=== PATIENT | female | born 1940 | race Caucasian/White ===

== ENCOUNTER 2017-09-29 18:52 | Observation (INO) | payer MEDICARE ==
[~2017-09-29] VITALS: Ht 162.6 cm; Wt 50.0 kg
[~2017-09-29 18:52] MED LIST: ALLE60TA PO; BENZ1TAB PO; CETI10 PO; CLON1 PO; DILA2TAB4 PO; LAMO100T PO; MACR100C PO; NAPHSOL EACH EYE; POTA-243 PO; PREV30CA36 PO; REME15TA PO; SYNT25TA PO; TRIA3AER; ZIPR40 PO; [UNRECOGNIZED DRUG - CODE] PO
[2017-09-29 19:19] VITALS: BP 171/76; PULSE 65; RESP 17; TEMP 97.5; O2SAT 99
--- NOTE | 2017-09-29 19:36 | PD ---
HPI Chief Complaint: Dizziness Time Seen by Provider: 19:30 Travel History International Travel<30 days: No Contact w/Intl Traveler<30days: No Traveled to known affect area: No History of Present Illness HPI 77-year-old female with history of hypertension and bipolar disorder presents emergency department for evaluation. Patient states she has been being treated for a right otitis media for about the last month. She has an appointment with clinical research monitor tomorrow however last night and today she has felt very lightheaded. She states that she feels as though she is going to pass out with any position changes. She has been nauseous. Denies any vomiting. No chest pain or tightness. No difficulty breathing. No other focal deficits or weakness. Patient denies any fever or chills. She has no other symptoms to report. PFSH Past Medical History Bipolar Disorder: Yes Anxiety: Yes Cancer: No Cardiovascular Problems: Yes Diabetes: No Diminished Hearing: No Endocrine: Yes Gastrointestinal Disorders: Yes (ACID REFLEX AND ULCERS) GERD: Yes Genitourinary: No Hepatitis: No Hiatal Hernia: No Hypertension: Yes (IN PAST, OFF MEDICATION) Insomnia: Yes Musculoskeletal: Yes Neurologic: No Psychiatric: Yes (ANXIETY AND DEPRESSION, BIPOLAR) Reproductive: No Respiratory: Yes (ENVIRONMENTAL ALLEGIES) Thyroid Disease: Yes (HYPOTHYROIDISM) PNEUMOCCOCAL Vaccine (Year): 1 Menopausal: Yes : 2 Para: 2 Miscarriage: 0 : 0 Ovarian Cysts: Yes (RIGHT TUBE AND OVARY REMOVED) Past Surgical History Abdominal Surgery: No Arteriovenous Shunt: No Body Medical Devices: DENTAL TOP LEFT, BOTTOM RIGHT Cardiac Surgery: No Ear Surgery: No Endocrine Surgery: Yes (PARTIAL THYROIDECTOMY) Eye Surgery: No Genitourinary Surgery: No Gynecologic Surgery: Yes ( right ovary and right tube removed) Insulin Pump: No Joint Replacement: Yes (LEFT TKR) Oral Surgery: Yes (tongue biopsy ) Thoracic Surgery: No Other Surgery: Yes (PARTIAL THYROIDECTOMY) Social History Alcohol Use: Yes (SOCIAL MIX DRINKS) Tobacco Use: No Substance Use: No Allergies-Medications (Allergen,Severity, Reaction): Coded Allergies: azithromycin (Unverified Allergy, Severe, very sick, 01/25/17) diatrizoate meglumine (Unverified Allergy, Mild, HIVES, 01/25/17) gadobenic acid (Unverified Allergy, Mild, HIVES, 01/25/17) gadodiamide (Unverified Allergy, Mild, HIVES, 01/25/17) gadoteridol (Unverified Allergy, Mild, HIVES, 01/25/17) iodine (Unverified Allergy, Mild, HIVES AND NAUSEA, 01/25/17) iodixanol (Unverified Allergy, Mild, HIVES, 01/25/17) iohexol (Unverified Allergy, Mild, HIVES, 01/25/17) penicillin G (Unverified Allergy, Mild, HIVES, 01/25/17) potassium iodide (Unverified Allergy, Mild, HIVES AND NAUSEA, 01/25/17) povidone-iodine (Unverified Allergy, Mild, HIVES AND NAUSEA, 01/25/17) sodium iodide (Unverified Allergy, Mild, HIVES AND NAUSEA, 01/25/17) sodium iodide (Unverified Allergy, Mild, HIVES AND NAUSEA, 01/25/17) aspirin (Unverified Adverse Reaction, Severe, PT HAS ULCER, 01/25/17) erythromycin base (Unverified Adverse Reaction, Severe, TOO TIRED TO GET OUT OF BED, 01/25/17) Uncoded Allergies: PREDNISONE/CORTISONE (Allergy, Severe, 05/28/11) Reported Meds & Prescriptions Reported Meds & Active Scripts Active Macrobid (Nitrofurantoin Macrocrystals) 100 Mg Cap 100 Mg PO BID Reported Cefprozil 250 Mg/5 Ml Delaney 250 Mg PO Q12 Dilaudid (Hydromorphone HCl) 2 Mg Tab 2 Mg PO Q6H Zyrtec 10 Mg Tab (Cetirizine HCl) 10 Mg Tab 10 Mg PO DAILY PRN Naphcon-A (Naphazoline W/ Pheniramine) Op Jing 1 Drop EACH EYE BID Jagruti Allergy (Fexofenadine Hcl) 60 Mg Tab 60 Mg PO DAILY Remeron 15 mg (Mirtazapine) 15 Mg Tab 1 Tab PO HS Cogentin (Benztropine Mesylate) 1 Mg Tab 1 Mg PO DAILY Lamotrigine 100 Mg Tab 1 Tab PO HS Geodon (Ziprasidone) 40 Mg Cap 40 Mg PO HS Prevacid (Lansoprazole) 30 Mg Capcr 30 Mg PO BID Nasacort Aq (Triamcinolone Acetonide) 55 Mcg Naspr 2 Spr NA DAILY SPRAY IN EACH NOSTRIL Klonopin (Clonazepam) 1 Mg Tab 1 Mg PO BID Synthroid 25 mcg (Levothyroxine Sodium) 25 Mcg Tab 25 Mcg PO DAILY K-Dur (Potassium Chloride) 10 Meq Tabcr 10 Meq PO DAILY Review of Systems Except as stated in HPI: all other systems reviewed are Neg Physical Exam Narrative GENERAL: Well-nourished female patient, in no acute distress. SKIN: Focused skin assessment warm/dry. HEAD: Atraumatic. Normocephalic. EYES: Pupils equal and round. No scleral icterus. No injection or drainage. ENT: No nasal bleeding or discharge. Mucous membranes pink and moist. NECK: Trachea midline. No JVD. CARDIOVASCULAR: Regular rate and rhythm. RESPIRATORY: No accessory muscle use. Clear to auscultation. Breath sounds equal bilaterally. GASTROINTESTINAL: Abdomen soft, non-tender, nondistended. Hepatic and splenic margins not palpable. MUSCULOSKELETAL: No obvious deformities. No clubbing. No cyanosis. No edema. NEUROLOGICAL: Awake and alert. No obvious cranial nerve deficits. Motor grossly within normal limits. Normal speech. PSYCHIATRIC: Appropriate mood and affect; insight and judgment normal. Data Data Last Documented VS Vital Signs Date Time Temp Pulse Resp B/P (MAP) Pulse Ox O2 Delivery O2 Flow Rate FiO2 09/29/17 20:46 58 16 175/78 (110) 98 Room Air 09/29/17 19:19 97.5 Orders Orders Electrocardiogram (09/29/17 19:32) Basic Metabolic Panel (Bmp) (09/29/17 19:32) Complete Blood Count With Diff (09/29/17 19:32) Magnesium (Mg) (09/29/17 19:32) Ckmb (Isoenzyme) Profile (09/29/17 19:32) Troponin I (09/29/17 19:32) Act Partial Throm Time (Ptt) (09/29/17:32) Prothrombin Time / Inr (Pt) (09/29/17 19:32) Urinalysis - C+S If Indicated (09/29/17 19:32) Chest, Single Ap (09/29/17 19:32) Ct Brain W/O Iv Contrast(Rout) (09/29/17 19:32) Ecg Monitoring (09/29/17 19:32) Iv Access Insert/Monitor (09/29/17 19:32) Oximetry (09/29/17 19:32) Sodium Chloride 0.9% Flush (Ns Flush) (09/29/17 19:45) CKMB (09/29/17 19:40) CKMB% (09/29/17 19:40) Urine Culture (09/29/17 20:10) Admit Order (Ed Use Only) (09/29/17 20:49) Labs Laboratory Tests Test 09/29/17 19:40 09/29/17 20:10 White Blood Count 8.9 TH/MM3 Red Blood Count 4.84 MIL/MM3 Hemoglobin 14.0 GM/DL Hematocrit 41.1 % Mean Corpuscular Volume 84.9 FL Mean Corpuscular Hemoglobin 29.0 PG Mean Corpuscular Hemoglobin Concent 34.2 % Red Cell Distribution Width 13.4 % Platelet Count 322 TH/MM3 Mean Platelet Volume 7.0 FL Neutrophils (%) (Auto) 77.7 % Lymphocytes (%) (Auto) 14.8 % Monocytes (%) (Auto) 6.7 % Eosinophils (%) (Auto) 0.5 % Basophils (%) (Auto) 0.3 % Neutrophils # (Auto) 6.9 TH/MM3 Lymphocytes # (Auto) 1.3 TH/MM3 Monocytes # (Auto) 0.6 TH/MM3 Eosinophils # (Auto) 0.0 TH/MM3 Basophils # (Auto) 0.0 TH/MM3 CBC Comment DIFF FINAL Differential Comment Prothrombin Time 10.1 SEC Prothromb Time International Ratio 1.0 RATIO Activated Partial Thromboplast Time 26.8 SEC Blood Urea Nitrogen 14 MG/DL Creatinine 0.79 MG/DL Random Glucose 100 MG/DL Calcium Level 8.7 MG/DL Magnesium Level 2.1 MG/DL Sodium Level 128 MEQ/L Potassium Level 4.4 MEQ/L Chloride Level 95 MEQ/L Carbon Dioxide Level 25.9 MEQ/L Anion Gap 7 MEQ/L Estimat Glomerular Filtration Rate 71 ML/MIN Total Creatine Kinase 121 U/L Creatine Kinase MB 4.0 NG/ML Troponin I LESS THAN 0.02 NG/ML Urine Color LIGHT-YELLOW Urine Turbidity CLEAR Urine pH 6.0 Urine Specific [place] 1.006 Urine Protein NEG mg/dL Urine Glucose (UA) NEG mg/dL Urine Ketones NEG mg/dL Urine Occult Blood NEG Urine Nitrite NEG Urine Bilirubin NEG Urine Urobilinogen LESS THAN 2.0 MG/DL Urine Leukocyte Esterase MOD Urine WBC 12 /hpf Urine Squamous Epithelial Cells 1 /hpf Microscopic Urinalysis Comment CULTURE INDICATED MDM Medical Decision Making Medical Screen Exam Complete: Yes Emergency Medical Condition: Yes Medical Record Reviewed: Yes Differential Diagnosis Otitis media versus vertigo versus intracranial etiology versus electrolyte abnormality versus cardiac arrhythmia Narrative Course 77-year-old female presents emergency department for evaluation. Patient appears without distress. Vital signs are stable. Workup is initiated in triage ambulance hallway. Laboratory Tests Test 09/29/17 19:40 09/29/17 20:10 White Blood Count 8.9 TH/MM3 Red Blood Count 4.84 MIL/MM3 Hemoglobin 14.0 GM/DL Hematocrit 41.1 % Mean Corpuscular Volume 84.9 FL Mean Corpuscular Hemoglobin 29.0 PG Mean Corpuscular Hemoglobin Concent 34.2 % Red Cell Distribution Width 13.4 % Platelet Count 322 TH/MM3 Mean Platelet Volume 7.0 FL Neutrophils (%) (Auto) 77.7 % Lymphocytes (%) (Auto) 14.8 % Monocytes (%) (Auto) 6.7 % Eosinophils (%) (Auto) 0.5 % Basophils (%) (Auto) 0.3 % Neutrophils # (Auto) 6.9 TH/MM3 Lymphocytes # (Auto) 1.3 TH/MM3 Monocytes # (Auto) 0.6 TH/MM3 Eosinophils # (Auto) 0.0 TH/MM3 Basophils # (Auto) 0.0 TH/MM3 CBC Comment DIFF FINAL Differential Comment Prothrombin Time 10.1 SEC Prothromb Time International Ratio 1.0 RATIO Activated Partial Thromboplast Time 26.8 SEC Blood Urea Nitrogen 14 MG/DL Creatinine 0.79 MG/DL Random Glucose 100 MG/DL Calcium Level 8.7 MG/DL Magnesium Level 2.1 MG/DL Sodium Level 128 MEQ/L Potassium Level 4.4 MEQ/L Chloride Level 95 MEQ/L Carbon Dioxide Level 25.9 MEQ/L Anion Gap 7 MEQ/L Estimat Glomerular Filtration Rate 71 ML/MIN Total Creatine Kinase 121 U/L Creatine Kinase MB 4.0 NG/ML Troponin I LESS THAN 0.02 NG/ML Urine Color LIGHT-YELLOW Urine Turbidity CLEAR Urine pH 6.0 Urine Specific [place] 1.006 Urine Protein NEG mg/dL Urine Glucose (UA) NEG mg/dL Urine Ketones NEG mg/dL Urine Occult Blood NEG Urine Nitrite NEG Urine Bilirubin NEG Urine Urobilinogen LESS THAN 2.0 MG/DL Urine Leukocyte Esterase MOD Urine WBC 12 /hpf Urine Squamous Epithelial Cells 1 /hpf Microscopic Urinalysis Comment CULTURE INDICATED I discussed the pt with my attending who suggests observation admission for further evaluation of pts near syncopal events. Diagnosis Primary Impression: Near syncope Admitting Information Admitting Physician Requests: Observation Condition: Stable Candy Mendez Sep 29, 2017 19:36
[2017-09-29] MEDS ORDERED: SODIUM CHLORIDE 0.9% FLUSH 10 ML FLUSH IVF PRN (19:45)
--- NOTE | 2017-09-29 20:06 | RADRPT ---
EXAM DATE/TIME: 09/29/2017 19:45 [facility] COMPARISON: CHEST SINGLE AP, October 23, 2015, 21:52. INDICATIONS : Dizziness. MEDICAL HISTORY : Hypertension. Myocardial infarction. Emphysema. SURGICAL HISTORY : None. ENCOUNTER: Initial ACUITY: 1 day PAIN SCORE: 0/10 LOCATION: Bilateral chest FINDINGS: A single view of the chest demonstrates the lungs to be symmetrically aerated without evidence of mas s, infiltrate or effusion. The cardiomediastinal contours are unremarkable. Osseous structures are intact. CONCLUSION: Stable chest appearance. No acute disease. Simeon Smith MD on September 29, 2017 at 20:03 Board Certified Radiologist. This report was verified electronically.
[2017-09-29 20:10] LABS: AUTOMATED NEUTROPHIL # 6.9 TH/MM3 (1.8-7.7); BASOPHIL % 0.3 % (0.0-2.0); EOSINOPHIL % 0.5 % (0.0-4.0); HEMATOCRIT 41.1 % (35.0-46.0); LYMPH % 14.8 % (9.0-44.0); LYMPHOCYTE # 1.3 TH/MM3 (1.0-4.8); MEAN CELL VOLUME 84.9 FL (80.0-100.0); MEAN CORPUSCULAR HGB CONC 34.2 % (32.0-36.0); MONO % 6.7 % (0.0-8.0); MONOCYTE # 0.6 TH/MM3 (0-0.9); NEUT % 77.7 % (16.0-70.0); PLATELET COUNT 322 TH/MM3 (150-450); RED BLOOD COUNT 4.84 MIL/MM3 (4.00-5.30); RED CELL DISTRIBUTION WIDTH 13.4 % (11.6-17.2); WHITE BLOOD COUNT 8.9 TH/MM3 (4.0-11.0)
[2017-09-29 20:27] LABS: BICARBONATE 25.9 MEQ/L (21.0-32.0); BLOOD UREA NITROGEN 14 MG/DL (7-18); CALCIUM 8.7 MG/DL (8.5-10.1); CHLORIDE 95 MEQ/L (98-107); CREATININE 0.79 MG/DL (0.50-1.00); GLOMERULAR FILTRATION RATE 71 ML/MIN (>89); GLUCOSE,RANDOM 100 MG/DL (74-106); MAGNESIUM 2.1 MG/DL (1.5-2.5); SODIUM (NA) 128 MEQ/L (136-145)
[2017-09-29 20:31] LABS: TROPONIN I LESS THAN 0.02 NG/ML (0.02-0.05)
[2017-09-29 20:35] LABS: PROTHROMBIN TIME - PATIENT 10.1 SEC (9.8-11.6)
[2017-09-29 20:40] LABS: BILIRUBIN, URINE NEG (NEG); BLOOD, URINE NEG (NEG); GLUCOSE,URINE NEG (NEG); KETONE, URINE NEG (NEG); NITRITE,URINE NEG (NEG); SQUAMOUS EPITHELIAL CELL URINE 1 /hpf (0-5); URINE COLOR LIGHT-YELLOW (YELLW/STRAW); URINE LEUKOCYTE ESTERASE MOD (NEG)
--- NOTE | 2017-09-29 20:45 | RADRPT ---
EXAM DATE/TIME: 09/29/2017 19:49 [facility] COMPARISON: CT BRAIN W/O CONTRAST, May 23, 2011, 21:15. INDICATIONS : Dizziness. RADIATION DOSE: 34.35 CTDIvol (mGy) MEDICAL HISTORY : Hypertension. SURGICAL HISTORY : None. ENCOUNTER: Initial ACUITY: 1 day PAIN SCALE: 0/10 LOCATION: cranial TECHNIQUE: Multiple contiguous axial images were obtained of the head. Using automated exposure control and adj ustment of the mA and/or kV according to patient size, radiation dose was kept as low as reasonably a chievable to obtain optimal diagnostic quality images. DICOM format image data is available electro nically for review and comparison. FINDINGS: CEREBRUM: The ventricles are normal for age. No evidence of midline shift, mass lesion, hemorrhage or acute in farction. No extra-axial fluid collections are seen. POSTERIOR FOSSA: The cerebellum and brainstem are intact. The 4th ventricle is midline. The cerebellopontine angle i s unremarkable. EXTRACRANIAL: The visualized portion of the orbits is intact. SKULL: The calvaria is intact. No evidence of skull fracture. CONCLUSION: Stable brain appearance. No acute intracranial findings. Simeon Smith MD on September 29, 2017 at 20:40 Board Certified Radiologist. This report was verified electronically.
[2017-09-29 20:46] VITALS: BP 175/78; PULSE 58; RESP 16; O2SAT 98
[2017-09-29] MEDS ORDERED: MULT-65 PO (20:56)
[2017-09-29] MEDS ORDERED: PREV30CA36 PO (20:56)
[2017-09-29] MEDS ORDERED: NAPHSOL EACH EYE (20:56)
[2017-09-29] MEDS ORDERED: CETI10 (20:56)
[2017-09-29] MEDS ORDERED: ZINC220C3 PO (20:56)
[2017-09-29] MEDS ORDERED: LAMO100T PO (20:56)
[2017-09-29] MEDS ORDERED: POTA10CA PO (20:56)
[2017-09-29] MEDS ORDERED: ZIPR40 PO (20:56)
[2017-09-29] MEDS ORDERED: SYNT25TA PO (20:56)
[2017-09-29] MEDS ORDERED: CYAN1TAB24 (20:56)
[2017-09-29] MEDS ORDERED: MELA1TAB18 PO (20:56)
[2017-09-29] MEDS ORDERED: TRIA1SPR5 EACH NARE (20:56)
[2017-09-29] MEDS ORDERED: CLON1 PO (20:56)
[2017-09-29] MEDS ORDERED: VITA1000 PO (20:56)
[2017-09-29] MEDS ORDERED: LISI10TA3 PO (20:56)
[2017-09-29] MEDS ORDERED: SODIUM CHLOR 0.9% 1000 ML INJ 1,000 ML IV SCH (21:30)
[2017-09-29 22:21] VITALS: BP 220/91; PULSE 59; RESP 16; O2SAT 97
--- NOTE | 2017-09-29 22:28 | PD ---
Physical Exam Narrative GENERAL: 77-year-old female in no apparent distress SKIN: Focused skin assessment warm/dry. HEAD: Atraumatic. Normocephalic. EYES: Pupils equal and round. No scleral icterus. No injection or drainage. ENT: No nasal bleeding or discharge. Mucous membranes pink and moist. NECK: Trachea midline. CARDIOVASCULAR: Regular rate and rhythm. RESPIRATORY: No accessory muscle use. No increased effort GASTROINTESTINAL: Abdomen soft, non-tender, nondistended. MUSCULOSKELETAL: No obvious deformities. No clubbing. No cyanosis. NEUROLOGICAL: Awake and alert. Moves all extremities. Normal speech. Data Data Last Documented VS Vital Signs Date Time Temp Pulse Resp B/P (MAP) Pulse Ox O2 Delivery O2 Flow Rate FiO2 09/29/17 20:46 58 16 175/78 (110) 98 Room Air 09/29/17 19:19 97.5 Orders Orders Electrocardiogram (09/29/17 19:32) Basic Metabolic Panel (Bmp) (09/29/17 19:32) Complete Blood Count With Diff (09/29/17 19:32) Magnesium (Mg) (09/29/17 19:32) Ckmb (Isoenzyme) Profile (09/29/17 19:32) Troponin I (09/29/17:32) Act Partial Throm Time (Ptt) (09/29/17:32) Prothrombin Time / Inr (Pt) (09/29/17 19:32) Urinalysis - C+S If Indicated (09/29/17 19:32) Chest, Single Ap (09/29/17 19:32) Ct Brain W/O Iv Contrast(Rout) (09/29/17 19:32) Ecg Monitoring (09/29/17 19:32) Iv Access Insert/Monitor (09/29/17 19:32) Oximetry (09/29/17 19:32) Sodium Chloride 0.9% Flush (Ns Flush) (09/29/17 19:45) CKMB (09/29/17 19:40) CKMB% (09/29/17 19:40) Urine Culture (09/29/17 20:10) Admit Order (Ed Use Only) (09/29/17 20:49) Orthostatic Vital Signs (09/29/17 20:51) Labs Laboratory Tests Test 09/29/17 19:40 09/29/17 20:10 White Blood Count 8.9 TH/MM3 Red Blood Count 4.84 MIL/MM3 Hemoglobin 14.0 GM/DL Hematocrit 41.1 % Mean Corpuscular Volume 84.9 FL Mean Corpuscular Hemoglobin 29.0 PG Mean Corpuscular Hemoglobin Concent 34.2 % Red Cell Distribution Width 13.4 % Platelet Count 322 TH/MM3 Mean Platelet Volume 7.0 FL Neutrophils (%) (Auto) 77.7 % Lymphocytes (%) (Auto) 14.8 % Monocytes (%) (Auto) 6.7 % Eosinophils (%) (Auto) 0.5 % Basophils (%) (Auto) 0.3 % Neutrophils # (Auto) 6.9 TH/MM3 Lymphocytes # (Auto) 1.3 TH/MM3 Monocytes # (Auto) 0.6 TH/MM3 Eosinophils # (Auto) 0.0 TH/MM3 Basophils # (Auto) 0.0 TH/MM3 CBC Comment DIFF FINAL Differential Comment Prothrombin Time 10.1 SEC Prothromb Time International Ratio 1.0 RATIO Activated Partial Thromboplast Time 26.8 SEC Blood Urea Nitrogen 14 MG/DL Creatinine 0.79 MG/DL Random Glucose 100 MG/DL Calcium Level 8.7 MG/DL Magnesium Level 2.1 MG/DL Sodium Level 128 MEQ/L Potassium Level 4.4 MEQ/L Chloride Level 95 MEQ/L Carbon Dioxide Level 25.9 MEQ/L Anion Gap 7 MEQ/L Estimat Glomerular Filtration Rate 71 ML/MIN Total Creatine Kinase 121 U/L Creatine Kinase MB 4.0 NG/ML Troponin I LESS THAN 0.02 NG/ML Urine Color LIGHT-YELLOW Urine Turbidity CLEAR Urine pH 6.0 Urine Specific [place] 1.006 Urine Protein NEG mg/dL Urine Glucose (UA) NEG mg/dL Urine Ketones NEG mg/dL Urine Occult Blood NEG Urine Nitrite NEG Urine Bilirubin NEG Urine Urobilinogen LESS THAN 2.0 MG/DL Urine Leukocyte Esterase MOD Urine WBC 12 /hpf Urine Squamous Epithelial Cells 1 /hpf Microscopic Urinalysis Comment CULTURE INDICATED MDM Supervised Visit with PADMINI: Yes Interpretation(s) CBC & BMP Diagram 09/29/17 19:40 Calcium Level 8.7, Magnesium Level 2.1 Last [address] 09/29/17 193 Signed Impressions: Service Date/Time: September 19:49 - CONCLUSION: Stable brain appearance. No acute intracranial findings. Simeon Smith MD Chest X-Ray 09/29/[id number] Signed Impressions: Service Date/Time: September 19:45 - CONCLUSION: Stable chest appearance. No acute disease. Simeon Smith MD Narrative Course I, Dr. adames, have reviewed the advance practice practitioner's documentation and am in agreement, met with the patient face to face, made the diagnosis, and the medical decision making was done by me. *My assessment and Findings: 77-year-old female with dizziness and near syncopal event tonight. Patient has mild elevation in CK-MB. Symptoms sound more related to her recent ear infection given age and risk factors she agrees to observation overnight. She also has concurrent hyponatremia but this is similar to prior. Patient and daughter updated Physician Communication Physician Communication Dr. Finley agrees to admission Diagnosis Primary Impression: Near syncope Admitting Information Admitting Physician Requests: Observation Condition: Stable Toyin Adames MD Sep 29, 2017 22:28
[2017-09-29 22:50] VITALS: BP 167/74; PULSE 59; RESP 12; O2SAT 98
[2017-09-29 22:56] VITALS: BP_SYST 162; BP_SYST 164; BP_SYST 175; BP_DIAS 74; BP_DIAS 90; RESP 14; RESP 16
[2017-09-29] MEDS ORDERED: lamoTRIgine 100 MG TAB PO SCH (23:00)
[2017-09-29] MEDS ORDERED: clonazePAM 1 MG TAB PO SCH (23:00)
[2017-09-29] MEDS ORDERED: ZIPRASIDONE HCL 40 MG CAP PO SCH (23:00)
[2017-09-29 23:05] VITALS: BP 186/86; PULSE 57; RESP 16; TEMP 98.9; O2SAT 98
[2017-09-30] VITALS (9 sets, daily range): BP systolic 117–170; BP diastolic 58–83; PULSE 55–84; RESP 16–20; TEMP 96.9–98.5; O2SAT 96–98
[2017-09-30] MEDS ORDERED: cloNIDine HCL 0.1 MG TAB PO PRN (07:45)
[2017-09-30] MEDS ORDERED: ENALAPRILAT 1.25 MG/ML VIAL IV PUSH PRN (07:45)
[2017-09-30] MEDS ORDERED: LEVOTHYROXINE SODIUM 25 MCG TAB PO SCH (08:00)
--- NOTE | 2017-09-30 08:05 | HHI.HP ---
HPI Service [facility] Hospitalists Primary Care Physician Imelda Espinosa MD Admission Diagnosis Near syncope; hyponatremia Chief Complaint: Lightheadedness Travel History International Travel<30 Days: No Contact w/Intl Traveler <30 Da: No Traveled to Known Affected Are: No History of Present Illness Ms. Winter is a pleasant 77 y/o WF with HTN, hypothyroidism, GERD, and Bipolar disorder. Pt was recently treated for otitis external in July 2017 with Cipro gtt. She was later seen at [facility] on 09/17/17 with c/o lightheadedness , abdominal pain and urinary frequency and found to have right cerumen impaction which was lavaged and pt noted to have otitis externa. She was prescribed Ofloxacin 0.3% gtt. Her UA was abnormal at that time and she was prescribed Cipro 500mg po BID. She followed up with her PCP, Dr. Espinosa, on 09/26/17 and was still having some dizziness which did not improve with the treatment with the Ofloxacin gtt. She was being sent for Holter monitor, CT brain and head, Carotid US and 2D echo and was scheduled to see ENT today. She was also prescribed oral Cipro 250mg po BID. She presented to the ED at [facility] on with complaints of lightheadedness and near syncope. She states that she feels as though she is going to pass out with any position changes. Denies any dizziness or room spinning. She describes the lightheadedness as a feeling like she is going to pass out. She has been nauseous but denies any vomiting. She reports that this has been going on intermittently for the last few weeks. She states that in the last few days it was worse and she was unable to get around much in her apartment. She lives alone. Orthostatic vitals signs were checked in the ED and were negative but her BP was significantly elevated last night with systolic as high as 220. Her BP has been better overnight and this morning. Head CT was negative. She states that since admission she has been feeling better. She has gotten up out of bed to use the bedside commode and denies any lightheadedness. She is anxious to go home today. Denies any chest pain, palpitations, SOB, abdominal pain, headache or visual changes. She reports that she had been having a headache previously but this has been better since admission as well. She states that she has been eating and drinking normally. She takes Miralax regularly for constipation and states that two days ago she had many BMs so she did not take the Miralax yesterday. Her only recent medication change was a decrease in her dose of Klonopin to 0.5mg in AM and 1mg in PM. She had previously been on 1mg BID. She does feel that she has been more anxious since the decrease in her Klonopin dose. She notes that she feels the lightheadedness started around the time of her medication change. Review of Systems Constitutional: DENIES: Fever, Weight gain, Weight loss Eyes: DENIES: Vision loss Ears, nose, mouth, throat: DENIES: Tinnitus, Hearing loss, Oral lesions, Ear Pain, Sinus Pain Respiratory: DENIES: Shortness of breath Cardiovascular: DENIES: Chest pain, Palpitations, Lower Extremity Edema Gastrointestinal: COMPLAINS OF: Constipation, Nausea, DENIES: Abdominal pain Genitourinary: DENIES: Hematuria, Dysuria Musculoskeletal: DENIES: Back pain, Neck pain Integumentary: DENIES: Rash Neurologic: COMPLAINS OF: Headache, DENIES: Localized weakness, Speech Problems , Poor Balance Psychiatric: DENIES: Confusion Past Family Social History Past Medical History Bipolar disorder GERD/Hx of PUD Richardson's esophagus Allergic rhinitis Anxiety HTN Hyperlipidemia Hypothyroidism Iron deficiency anemia Osteoarthritis Osteoporosis Vertigo Vitamin D deficiency Past Surgical History Right Salpingo-oophorectomy Partial thyroidectomy Tonsillectomy Reported Medications Zinc Sulfate 25 Mg PO DAILY Vitamin D-1000 2,000 Units PO DAILY B12 1,000 Mcg Tab 2,500 Multi-Vitamin Daily 1 Tab PO DAILY Melatonin 10 Mg PO HS PRN Lisinopril 10 Mg PO DAILY Geodon 40 Mg PO HS Nasacort Allergy 24Hr Nasal [place] 110 Mcg EACH NARE DAILY Synthroid 25 Mcg PO DAILY Potassium Chloride ER 10 Meq PO DAILY Naphcon-A Opth Drops 0.025-0.3 % Soln 1 Drop EACH EYE BID Prevacid 30 Mg PO BID Lamotrigine 100 Mg PO HS Klonopin 0.5mg in AM and 1mg in PM Cetirizine 10 Mg DAILY Allergies: Coded Allergies: azithromycin (Unverified Allergy, Severe, very sick, 01/25/17) diatrizoate meglumine (Unverified Allergy, Mild, HIVES, 01/25/17) gadobenic acid (Unverified Allergy, Mild, HIVES, 01/25/17) gadodiamide (Unverified Allergy, Mild, HIVES, 01/25/17) gadoteridol (Unverified Allergy, Mild, HIVES, 01/25/17) iodine (Unverified Allergy, Mild, HIVES AND NAUSEA, 01/25/17) iodixanol (Unverified Allergy, Mild, HIVES, 01/25/17) iohexol (Unverified Allergy, Mild, HIVES, 01/25/17) penicillin G (Unverified Allergy, Mild, HIVES, 01/25/17) potassium iodide (Unverified Allergy, Mild, HIVES AND NAUSEA, 01/25/17) povidone-iodine (Unverified Allergy, Mild, HIVES AND NAUSEA, 01/25/17) sodium iodide (Unverified Allergy, Mild, HIVES AND NAUSEA, 01/25/17) sodium iodide (Unverified Allergy, Mild, HIVES AND NAUSEA, 01/25/17) aspirin (Unverified Adverse Reaction, Severe, PT HAS ULCER, 01/25/17) erythromycin base (Unverified Adverse Reaction, Severe, TOO TIRED TO GET OUT OF BED, 01/25/17) Uncoded Allergies: PREDNISONE/CORTISONE (Allergy, Severe, 05/28/11) Family History Mother with hx of Bipolar disorder, CAD Father with hx of Bipolar disorder Social History Hx of tobacco use, smoked from age 13 to 26, 2ppd, Hx of alcohol use Pt was born in [facility]. Moved to [place] in 1965 Physical Exam Vital Signs Vital Signs Date Time Temp Pulse Resp B/P (MAP) Pulse Ox O2 Delivery O2 Flow Rate FiO2 09/30/17 04:39 97.6 56 16 142/66 (91) 98 09/30/17 02:50 60 09/30/17 00:56 98.5 55 16 144/68 (93) 97 Manual Cuff/Auscultation 09/30/17 00:12 170/82 (111) 09/29/17 23:05 98.9 57 16 186/86 (119) 98 09/29/17 22:56 59 14 162/74 (103) 63 14 164/90 (114) 65 16 175/90 (118) 09/29/17 22:50 59 12 167/74 (105) 98 Room Air 09/29/17 22:21 59 16 220/91 (134) 97 Room Air 09/29/17 20:46 58 16 175/78 (110) 98 Room Air 09/29/17 19:19 97.5 65 17 171/76 (107) 99 Physical Exam GENERAL: This is a well-nourished, well-developed patient, in no apparent distress. HEENT: Atraumatic. Normocephalic. No temporal or scalp tenderness. No scleral icterus. Nose without bleeding, purulent drainage or septal hematoma. Right EAC with erythema and some cerumen. Airway patent. NECK: Trachea midline, supple, nontender. CARDIO: Regular RESP: CTA bilaterally. No wheezes, rales, or rhonchi. ABD: +BS, soft, non-tender, nondistended. EXT: Extremities without clubbing, cyanosis, or edema. NEURO: Awake and alert. Motor and sensory grossly within normal limits. Normal speech. Laboratory Laboratory Tests Test 09/29/17 19:40 09/29/17 20:10 White Blood Count 8.9 Red Blood Count 4.84 Hemoglobin 14.0 Hematocrit 41.1 Mean Corpuscular Volume 84.9 Mean Corpuscular Hemoglobin 29.0 Mean Corpuscular Hemoglobin Concent 34.2 Red Cell Distribution Width 13.4 Platelet Count 322 Mean Platelet Volume 7.0 Neutrophils (%) (Auto) 77.7 Lymphocytes (%) (Auto) 14.8 Monocytes (%) (Auto) 6.7 Eosinophils (%) (Auto) 0.5 Basophils (%) (Auto) 0.3 Neutrophils # (Auto) 6.9 Lymphocytes # (Auto) 1.3 Monocytes # (Auto) 0.6 Eosinophils # (Auto) 0.0 Basophils # (Auto) 0.0 CBC Comment DIFF FINAL Differential Comment Prothrombin Time 10.1 Prothromb Time International Ratio 1.0 Activated Partial Thromboplast Time 26.8 Blood Urea Nitrogen 14 Creatinine 0.79 Random Glucose 100 Calcium Level 8.7 Magnesium Level 2.1 Sodium Level 128 Potassium Level 4.4 Chloride Level 95 Carbon Dioxide Level 25.9 Anion Gap 7 Estimat Glomerular Filtration Rate 71 Total Creatine Kinase 121 Creatine Kinase MB 4.0 Troponin I LESS THAN 0.02 Urine Color LIGHT-YELLOW Urine Turbidity CLEAR Urine pH 6.0 Urine Specific [place] 1.006 Urine Protein NEG Urine Glucose (UA) NEG Urine Ketones NEG Urine Occult Blood NEG Urine Nitrite NEG Urine Bilirubin NEG Urine Urobilinogen LESS THAN 2.0 Urine Leukocyte Esterase MOD Urine WBC 12 Urine Squamous Epithelial Cells 1 Microscopic Urinalysis Comment CULTURE INDICATED Date/Time Source Procedure Growth Status 09/29/17 20:10 Urine Clean Catch Urine Culture Pending Received Result Diagram: 09/29/17193909/29/171939 Imaging Last [address] 09/29/171931 Signed Impressions: Service Date/Time: September 19:49 - CONCLUSION: Stable brain appearance. No acute intracranial findings. Simeon Smith MD Chest X-Ray 09/29/171931 Signed Impressions: Service Date/Time: September 19:45 - CONCLUSION: Stable chest appearance. No acute disease. MD Isai Deani VTE Risk Assessment Caprini VTE Risk Assessment: Mod/High Risk (score >= 2) Caprini Risk Assessment Model Point Value = 1 Point Value = 2 Point Value = 3 Point Value = 5 Age 41-60 Minor surgery BMI > 25 kg/m2 Swollen legs Varicose veins or History of unexplained or recurrent spontaneous Oral contraceptives or hormone replacement Sepsis (< 1 month) Serious lung disease, including pneumonia (< 1 month) Abnormal pulmonary function Acute myocardial infarction Congestive heart failure (< 1 month) History of inflammatory bowel disease Medical patient at bed rest Age 61-74 Arthroscopic surgery Major open surgery (> 45 min) Laparoscopic surgery (> 45 min) Malignancy Confined to bed (> 72 hours) Immobilizing plaster cast Central venous access Age >= 75 History of VTE Family history of VTE Factor V Leiden Prothrombin [id number] Lupus anticoagulant Anticardiolipin antibodies Elevated serum homocysteine Heparin-induced thrombocytopenia Other congenital or acquired thrombophilia Stroke (< 1 month) Elective arthroplasty Hip, pelvis, or leg fracture Acute spinal cord injury (< 1 month) Prophylaxis Regimen Total Risk Factor Score Risk Level Prophylaxis Regimen 0-1 Low Early ambulation 2 Moderate Order ONE of the following: *Sequential Compression Device (SCD) *Heparin 5000 units SQ BID 3-4 Higher Order ONE of the following medications: *Heparin 5000 units SQ TID *Enoxaparin/Lovenox 40 mg SQ daily (WT < 150 kg, CrCl > 30 mL/min) *Enoxaparin/Lovenox 30 mg SQ daily (WT < 150 kg, CrCl > 10-29 mL/min) *Enoxaparin/Lovenox 30 mg SQ BID (WT < 150 kg, CrCl > 30 mL/min) AND/OR *Sequential Compression Device (SCD) 5 or more Highest Order ONE of the following medications: *Heparin 5000 units SQ TID (Preferred with Epidurals) *Enoxaparin/Lovenox 40 mg SQ daily (WT < 150 kg, CrCl > 30 mL/min) *Enoxaparin/Lovenox 30 mg SQ daily (WT < 150 kg, CrCl > 10-29 mL/min) *Enoxaparin/Lovenox 30 mg SQ BID (WT < 150 kg, CrCl > 30 mL/min) AND *Sequential Compression Device (SCD) Assessment and Plan Problem List: (1) Near syncope ICD Codes: R55 - Syncope and collapse Status: Acute Plan: Lightheadedness Near Syncope - Pt is a 77 y/o WF with HTN, hypothyroidism, GERD, and Bipolar disorder. - Pt had recently been treated for otitis externa with antibiotic drops and oral antibiotics in the last few weeks. - She presented to the ED at [facility] on 09/29/17 with complaints of lightheadedness and near syncope. She reports that this has been going on intermittently for the last few weeks. She states that in the last few days it was worse and she was unable to get around much in her apartment. - Orthostatic vitals signs were checked in the ED and were negative but her BP was significantly elevated last night with systolic as high as 220. Her BP has been better overnight and this morning. - Head CT was negative. - She states that since admission she has been feeling better. She has gotten up out of bed to use the bedside commode and denies any lightheadedness. She is anxious to go home today. - Holter Monitor - Carotid US - Telemetry - 2D echo - PT evaluation - Pt is refusing to stay another night. We will try to get as much workup done here today as we can but she will need close followup with her PCP to review results if we are unable to get results before she leaves later today. Otitis Externa, acute - Pt was recently treated for otitis externa in July 2017 with Cipro gtt. - She was later seen at [facility] on 09/17/17 with c/o lightheadedness, abdominal pain and urinary frequency and found to have right cerumen impaction which was lavaged and pt noted to have otitis externa. She was prescribed Ofloxacin 0.3% gtt. Her UA was abnormal at that time and she was prescribed Cipro 500mg po BID. She followed up with her PCP, Dr. Espinosa, on 09/26/17 and was still having some lightheadedness which did not improve with the treatment with the Ofloxacin gtt. -She was scheduled to see Dr. Simons today. She was also prescribed oral Cipro 250mg po BID which she only took for a few days because she felt it was making her weak. - Pt still with noted erythema of the EAC of the right ear on exam but denies any pain. - She is to reschedule her appt with Dr. Simons HTN, chronic - Pts PT was significantly elevated overnight but she reports that with the lightheadedness and increased anxiety her BP elevates - Her BP improved overnight without medication intervention - She normally takes Lisinopril 10mg po daily which we will continue as long as her BP does not go too low. Hypothyroidism, chronic - Cont. home meds Bipolar Disorder,chronic - Cont. home meds - Pt requests that she have her previous dose of Klonopin (1mg BID) as she does not feel that the 0.5mg in the morning has been enough for her GERD, chronic - PPI Constipation, chronic - Miralax PRN ADDENDUM: - Pt was evaluated by PT and recommended HHC/PT but pt is refusing HHC/PT - She did have some lightheadedness in the afternoon when getting up. Her BP was stable with systolic in the 150's - Pts carotid US noted some moderate plaquing without hemodynamically significant stenosis - She has not had any significant arrhythmias noted on telemetry - Holter monitor to be applied prior to discharge. - Pt to be given another 500mL of NS and will try to ambulate to see if she has any further lightheadedness since pt is insisting on discharge today. - She will need close followup with her PCP, Dr. Espinosa in [address] Simons. (2) Hypertension, benign ICD Codes: I10 - Essential (primary) hypertension (3) Hypothyroidism ICD Codes: E03.9 - Hypothyroidism, unspecified (4) GERD (gastroesophageal reflux disease) ICD Codes: K21.9 - Gastro-esophageal reflux disease without esophagitis (5) Bipolar 1 disorder ICD Codes: F31.9 - Bipolar disorder, unspecified Assessment and Plan Patient examined. Assessment and plan formulated with Sabiha Zepeda PA-C. I agree with the above. dizziness. improved but not totally gone. did well with PT mild dehydration/hyponatremia. cont ivf recent abx for otitis externa and pt says was to see ENT today for "fluid" in her ear. Pt eager to go home. will give another 500ml fluid and recheck. Sabiha Zepeda Sep 30, 2017 08:05 Rohan Dotson MD Sep 30, 2017 13:51
[2017-09-30] MEDS ORDERED: clonazePAM 0.5 MG TAB PO SCH (09:00)
[2017-09-30] MEDS ORDERED: PANTOPRAZOLE SOD 40 MG DELAYED RELEASE TAB PO SCH (09:00)
[2017-09-30] MEDS ORDERED: FLUTICASONE PROPIONATE 50 MCG/ACT 16 GM NASAL SPRAY EACH NARE SCH (09:00)
[2017-09-30] MEDS ORDERED: PATIENT OWN MEDICATION EACH EYE SCH (09:00)
[2017-09-30] MEDS ORDERED: CETIRIZINE HCL 10 MG TAB PO SCH (09:00)
[2017-09-30] MEDS ORDERED: PNEUMOCOCCAL POLYVALENT INJ 25 MCG/0.5 ML SYR IM ONE (09:00)
[2017-09-30] MEDS ORDERED: TRIAMCINOLONE ACETONIDE 55 MCG/ACT NASAL SPRAY 16.5 GM BTL EACH NARE SCH (09:00)
[2017-09-30] MEDS ORDERED: LISINOPRIL 10 MG TAB PO SCH (09:00)
[2017-09-30 09:10] LABS: ALBUMIN 3.7 GM/DL (3.4-5.0); ALT (GPT) 19 U/L (10-53); AST (GOT) 17 U/L (15-37); BICARBONATE 27.1 MEQ/L (21.0-32.0); BLOOD UREA NITROGEN 10 MG/DL (7-18); CALCIUM 8.8 MG/DL (8.5-10.1); CHLORIDE 96 MEQ/L (98-107); GLOMERULAR FILTRATION RATE 70 ML/MIN (>89); GLUCOSE,RANDOM 88 MG/DL (74-106); SODIUM (NA) 129 MEQ/L (136-145)
[2017-09-30 09:14] LABS: ALKALINE PHOSPHATASE 55 U/L (45-117); TOTAL BILIRUBIN ADULT 0.3 MG/DL (0.2-1.0); TOTAL PROTEIN 6.9 GM/DL (6.4-8.2); TROPONIN I LESS THAN 0.02 NG/ML (0.02-0.05)
[2017-09-30] MEDS ORDERED: clonazePAM 1 MG TAB PO SCH (09:15)
--- NOTE | 2017-09-30 10:01 | RADRPT ---
EXAM DATE/TIME: 09/30/2017 09:13 [place] COMPARISON: No previous studies available for comparison. INDICATIONS : Lightheadedness. MEDICAL HISTORY : Hypothyroidism. Gastroesophageal reflux disease. Hypertension. Melanoma. SURGICAL HISTORY : Tongue biopsy. Right oophorectomy and fallopian tube removed. Partial thyroidectomy. Melanoma removed . ENCOUNTER: Initial ACUITY: 1 day PAIN SCORE: 0/10 LOCATION: Bilateral neck PEAK SYSTOLIC VELOCITIES (cm/sec): ICA/CCA RATIO: Right: 1.8 Left: 1.7 ICA: Right: 113 Left: 90 CCA: Right: 61 Left: 52 ECA: Right: 52 Left: 41 VERTEBRAL: Right: 58 antegrade Left: 38 antegrade Elevated flow velocities and ICA/CCA ratios have been found to correlate with increased degrees of vessel stenosis, calculated as percentage of diameter relative to a normal segment of distal ICA/CCA FINDINGS: RIGHT CAROTID: There is no evidence for a hemodynamically significant carotid stenosis. Moderate intimal hyperplasi a is present with scattered calcific plaque. LEFT CAROTID: There is no evidence for a hemodynamically significant carotid stenosis. Moderate intimal hyperplasi a is present with scattered calcific plaque. VERTEBRAL ARTERIES: Flow is antegrade in both vertebral arteries. MISCELLANEOUS: There are no ancillary masses or adenopathy. CONCLUSION: Moderate calcific plaque without hemodynamically significant stenosis. Continued surveillance is sug gested. There is strong concern of embolic disease CT angiography of the carotids would be of benefi t. . Edin Cadet MD FACR on September 30, 2017 at 9:57 Board Certified Radiologist. This report was verified electronically.
[2017-09-30] MEDS ORDERED: SODIUM CHLORID 0.9% 500 ML INJ 500 ML IV SCH (12:45)
[2017-09-30] MEDS ORDERED: ACETAMINOPHEN 325 MG TAB PO PRN (15:45)
--- NOTE | 2017-09-30 15:49 | HHI.DCPOC ---
Discharge Care Plan Diagnosis: (1) Hypothyroidism (2) GERD (gastroesophageal reflux disease) (3) Hypertension, benign (4) Bipolar 1 disorder (5) Near syncope (6) Otitis externa Goals to Promote Your Health * To prevent worsening of your condition and complications * To maintain your health at the optimal level Directions to Meet Your Goals Take your medications as prescribed Follow your dietary instruction Follow activity as directed Keep your appointments as scheduled Take your immunizations and boosters as scheduled If your symptoms worsen call your PCP, if no PCP go to Urgent Care Center or Emergency Room Smoking is Dangerous to Your Health. Avoid second hand smoke Call the 24-hour hour crisis hotline for domestic abuse at Sabiha Zepeda Sep 30, 2017 15:49
--- NOTE | 2017-09-30 18:03 | ECHRPT ---
Indication: NEAR SYNCOPE CONCLUSIONS Normal left ventricular size. Mild concentric left ventricular hypertrophy. The left ventricular systolic function is hyperdynamic with an estimated ejection fraction in the ra nge of 65- 70%. The left atrial size is mildly dilated. [id number] mitral valve regurgitation. Aortic valve sclerosis is present. There is mild tricuspid valve regurgitation. The estimated pulmonary arterial pressure is 26 mmHg. BP: / HR: Rhythm: Sinus MEASUREMENTS (Male / Female) Normal Values Technical Quality:Very technically difficult study 2D ECHO LV Diastolic Diameter PLAX 4.6 cm 4.2 - 5.9 / 3.9 - 5.3 cm LV Systolic Diameter PLAX 3.1 cm IVS Diastolic Thickness 1.1 cm 0.6 - 1.0 / 0.6 - 0.9 cm LVPW Diastolic Thickness 1.1 cm 0.6 - 1.0 / 0.6 - 0.9 cm LV Relative Wall Thickness 0.5 RV Internal Dim ED PLAX 1.8 cm LVOT Diameter 1.8 cm Aortic Root Diameter 2.1 cm LA Systolic Diameter LX 3.4 cm 3.0 - 4.0 / 2.7 - 3.8 cm M-MODE AV Cusp Separation MM 1.3 cm DOPPLER AV Peak Velocity 185.0 cm/s AV Peak Gradient 13.7 mmHg AV Mean Gradient 7.0 mmHg AV Velocity Time Integral 36.6 cm LVOT Peak Velocity 102.0 cm/s LVOT Peak Gradient 4.2 mmHg LVOT Velocity Time Integral 22.6 cm AV Area Cont Eq vti 1.6 cm AV Area Cont Eq pk 1.4 cm Mitral E Point Velocity 69.6 cm/s Mitral A Point Velocity 111.0 cm/s Mitral E to A Ratio 0.6 LV E' Lateral Velocity 11.0 cm/s Mitral E to LV E' Lateral Ratio 6.3 LV E' Septal Velocity 6.1 cm/s Mitral E to LV E' Septal Ratio 11.3 TR Peak Velocity 200.0 cm/s TR Peak Gradient 16.0 mmHg Right Atrial Pressure 10.0 mmHg Pulmonary Artery Systolic Pressu 26.0 mmHg Right Ventricular Systolic Press 26.0 mmHg PV Peak Velocity 57.1 cm/s PV Peak Gradient 1.3 mmHg FINDINGS LEFT VENTRICLE Normal left ventricular size. Mild concentric left ventricular hypertrophy. The left ventricular systolic function is hyperdynamic with an estimated ejection fraction in the ra nge of 65- 70%. RIGHT VENTRICLE Normal right ventricular size and systolic function. LEFT ATRIUM The left atrial size is mildly dilated. RIGHT ATRIUM The right atrial size is normal. ATRIAL SEPTUM The interatrial septum not well visualized. AORTA The aortic root and proximal ascending aorta are not well visualized. MITRAL VALVE [id number] mitral valve regurgitation. AORTIC VALVE Aortic valve sclerosis is present. TRICUSPID VALVE There is mild tricuspid valve regurgitation. The estimated pulmonary arterial pressure is 26 mmHg. PULMONARY VALVE The pulmonary valve is not well visualized. VESSELS The inferior vena cava was not well visualized. PERICARDIUM No pericardial effusion. Elfego Choi MD (Electronically Signed) Final Date:30 September 2017 18:01
--- NOTE | 2017-10-01 09:08 | EKG ---
Date Performed: 09/29/2017 Time Performed: 21:16:57 PTAGE: 77 years EKG: SINUS BRADYCARDIA WITH FIRST DEGREE AV BLOCK MINIMAL VOLTAGE CRITERIA FOR LVH, CONSIDER NOR MAL VARIANT ABNORMAL ECG PREVIOUS TRACING : 10/14/2015 09.41 DOCTOR: aHrris iHll Interpretating Date/Time 10/01/2017 09:06:19
--- NOTE | 2017-10-04 00:26 | HM ---
Date Performed: 09/30/2017 Time Performed: 13:51:00 HOOKUP DATE: 09/30/17 01:51:00 PM Fri ANALYSIS START TIME: 09/30/2017 1:56:00 PM ANALYSIS END TIME: 10/01/2017 1:59:59 PM PATIENT AGE: 77 PATIENT HEIGHT PATIENT WEIGHT DRUG LIST PATIENT DIAGNOSIS: near syncope TEST NARRATIVE: The patient's average heart rate was 62 BPM. Heart rates greater than 120 B PM were noted < 1% of the time. Heart rates less than 50 BPM were noted 24% of the time. No paus es exceeding 2.0 seconds were noted. 401 ventricular ectopics, which represented < 1% of the tota l beat count, were noted. The highest ventricular ectopic frequency occurred from 12:00 PM to 01:00 PM Sat. During this time 190 VE(s) occurred. Ventricular ectopics were observed as 399 isolated ulises t(s) and as 1 couplet(s). No runs were noted. Some of the ventricular beats occurred in bigeminal c ycles. 2 supraventricular ectopics, which represented < 1% of the total beat count, were noted. The highest supraventricular ectopic frequency occurred from 03:00 PM to 04:00 PM Fri. During this t tracy 2 SVE(s) occurred. No episodes of ST depression (defined as -1.0 mm or more) were noted in ch alberto 1. No episodes of ST depression (defined as -1.0 mm or more) were noted in channel 2. No epis odes of ST depression (defined as -1.0 mm or more) were noted in channel 3. POOR QUALITY TRACING, NO DIARY TEST INTERPRETATION: 1) Underlying Sinus rhythm 2) Areas of baseline artifact, unable to determine rhythm 3) Rare PVC/PAC 4) No diary of symptoms re turned Signed by : Homer holley
== END 2017-09-30 18:56 | disposition home or self-care (01) ==
LOC: NEPE 18:52 → NEDA 20:51 → NEPGCP 23:03
PROVIDERS: ADMIT Hospitalist; ATTEND Hospitalist
DX: R55 Syncope and collapse (principal); R11.0 Nausea; R51 Headache; H60.90 Unspecified otitis externa, unspecified ear; I10 Essential (primary) hypertension; I44.0 Atrioventricular block, first degree; R00.1 Bradycardia, unspecified; R94.31 Abnormal electrocardiogram [ECG] [EKG]; K21.9 Gastro-esophageal reflux disease without esophagitis; E03.9 Hypothyroidism, unspecified; F31.9 Bipolar disorder, unspecified; E86.0 Dehydration; E87.1 Hypo-osmolality and hyponatremia; K59.00 Constipation, unspecified; F41.9 Anxiety disorder, unspecified; E78.5 Hyperlipidemia, unspecified; Z79.899 Other long term (current) drug therapy; Z87.891 Personal history of nicotine dependence
CPT/HCPCS: 70450; 71045; 80048; 80053; 81001; 82550; 82552; 83735; 84484; 85025; 85610; 85730; 86403; 87077; 87086; 87186; 93005; 93225; 93226; 93306; 93880; 96360; 96361; 97162; 99285; G0378; G8987; G8988; J7030; J7040

== ENCOUNTER 2017-10-09 13:10 | Emergency (ER) | payer MEDICARE ==
[~2017-10-09] VITALS: Ht 152.4 cm; Wt 49.8 kg
[~2017-10-09 13:10] MED LIST changes: -ALLE60TA PO; -BENZ1TAB PO; +CETI10; -CETI10 PO; +CYAN1TAB24; -DILA2TAB4 PO; +LISI10TA3 PO; -MACR100C PO; +MELA1TAB18 PO; +MULT-65 PO; -POTA-243 PO; +POTA10CA PO; -REME15TA PO; +TRIA1SPR5 EACH NARE; -TRIA3AER; +VITA1000 PO; +ZINC220C3 PO; -[UNRECOGNIZED DRUG - CODE] PO
[2017-10-09 13:17] VITALS: BP 156/70; PULSE 80; RESP 16; TEMP 98.8; O2SAT 97
[2017-10-09 13:24] VITALS: BP 156/70; PULSE 80; RESP 16; TEMP 98.8; O2SAT 97
[2017-10-09 13:34] LABS: BILIRUBIN, URINE NEG (NEG); BLOOD, URINE TRACE (NEG); GLUCOSE,URINE NEG (NEG); KETONE, URINE NEG (NEG); NITRITE,URINE NEG (NEG); PH, URINE 5.5 (5.0-8.5); URINE COLOR YELLOW (YELLW/STRAW); URINE LEUKOCYTE ESTERASE NEG (NEG)
[2017-10-09 13:40] LABS: RBC, URINE 0-3 /hpf (0-3); WBC, URINE 0-2 /hpf (0-5)
[2017-10-09 13:41] LABS: SQUAMOUS EPITHELIAL CELL URINE 0-5 /hpf (0-5)
[2017-10-09] MEDS ORDERED: SODIUM CHLOR 0.9% 1000 ML INJ 1,000 ML IV ONE (13:45)
[2017-10-09] MEDS ORDERED: MECLIZINE HCL 25 MG TAB PO ONE (13:45)
[2017-10-09] MEDS ORDERED: SODIUM CHLORIDE 0.9% FLUSH 10 ML FLUSH IVF PRN (13:45)
--- NOTE | 2017-10-09 13:53 | PD ---
HPI Chief Complaint: Dizziness Time Seen by Provider: 13:32 Travel History International Travel<30 days: No Contact w/Intl Traveler<30days: No Traveled to known affect area: No History of Present Illness HPI Patient is a 77 year old female with history of hypertension, GERD, and bipolar disorder, who returns to the ER for evaluation of dizzyness. Patient reports that for the past month, she has been feeling very dizzy. Reports that she feels as if the room is spinning. She lives at home by herself, she is concerned as she is afraid of falling with her unstable gait. She has had an extensive workup during her last admission to the hospital for this on 09/29/17 where she had a ct of head which was benign as well as a carotid us which did show moderate calcific plaque without hemodynamically significant stenosis. Patient was discharged to home with instructions to follow-up with ENT Dr. Perez to further workup her symptoms. Patient reports that she saw Dr. Perez with ENT on , reports that he referred her to the dizzy/hearing clinic. Patient is frustrated as she is getting dizzier everyday and would like to know why she is so dizzy. Denies fall/trauma to head/neck. Denies fever/chills. Denies chest pain/sob. PFSH Past Medical History Blood Disorders: No Bipolar Disorder: Yes Anxiety: Yes Depression: Yes (bipolar) Cancer: Yes (SKIN MELANOMA REMOVED) Cardiovascular Problems: Yes High Cholesterol: Yes Diabetes: No Diminished Hearing: No Endocrine: Yes Gastrointestinal Disorders: Yes (ACID REFLEX AND ULCERS) GERD: Yes Genitourinary: No Hepatitis: No Hiatal Hernia: No Hypertension: Yes (IN PAST, OFF MEDICATION) Insomnia: Yes Medical other: No Musculoskeletal: Yes Neurologic: No Psychiatric: Yes (ANXIETY AND DEPRESSION, BIPOLAR) Reproductive: No Respiratory: Yes (ALLERGIES TO POLLEN/DUST) Thyroid Disease: Yes (HYPOTHYROIDISM) Tetanus Vaccination: Unknown PNEUMOCCOCAL Vaccine (Year): 1 ?: Not Menopausal: Yes : 2 Para: 2 Miscarriage: 0 : 0 Ovarian Cysts: Yes (RIGHT TUBE AND OVARY REMOVED) Past Surgical History Abdominal Surgery: No Arteriovenous Shunt: No Body Medical Devices: DENTAL TOP LEFT, BOTTOM RIGHT, L KNEE REPLACEMENT Cardiac Surgery: No Ear Surgery: No Endocrine Surgery: Yes (PARTIAL THYROIDECTOMY) Eye Surgery: No Genitourinary Surgery: No Gynecologic Surgery: Yes ( right ovary and right tube removed) Insulin Pump: No Joint Replacement: Yes (LEFT TKR) Oral Surgery: Yes (tongue biopsy ) Thoracic Surgery: No Other Surgery: Yes (PARTIAL THYROIDECTOMY) Social History Alcohol Use: Yes (SOCIAL MIX DRINKS) Tobacco Use: No Substance Use: No Allergies-Medications (Allergen,Severity, Reaction): Coded Allergies: azithromycin (Unverified Allergy, Severe, very sick, 10/09/17) diatrizoate meglumine (Unverified Allergy, Mild, HIVES, 10/09/17) gadobenic acid (Unverified Allergy, Mild, HIVES, 10/09/17) gadodiamide (Unverified Allergy, Mild, HIVES, 10/09/17) gadoteridol (Unverified Allergy, Mild, HIVES, 10/09/17) iodine (Unverified Allergy, Mild, HIVES AND NAUSEA, 10/09/17) iodixanol (Unverified Allergy, Mild, HIVES, 10/09/17) iohexol (Unverified Allergy, Mild, HIVES, 10/09/17) penicillin G (Unverified Allergy, Mild, HIVES, 10/09/17) potassium iodide (Unverified Allergy, Mild, HIVES AND NAUSEA, 10/09/17) povidone-iodine (Unverified Allergy, Mild, HIVES AND NAUSEA, 10/09/17) sodium iodide (Unverified Allergy, Mild, HIVES AND NAUSEA, 10/09/17) sodium iodide (Unverified Allergy, Mild, HIVES AND NAUSEA, 10/09/17) aspirin (Unverified Adverse Reaction, Severe, PT HAS ULCER, 10/09/17) erythromycin base (Unverified Adverse Reaction, Severe, TOO TIRED TO GET OUT OF BED, 10/09/17) Uncoded Allergies: PREDNISONE/CORTISONE (Allergy, Severe, 05/28/11) Reported Meds & Prescriptions Reported Meds & Active Scripts Active Reported Zinc Sulfate 220 Mg (50 Mg Zinc) Cap 25 Mg PO DAILY Vitamin D-1000 (Cholecalciferol) 1,000 Unit Tab 2,000 Units PO DAILY B12 (Cyanocobalamin) 1,000 Mcg Tab 2,500 Multi-Vitamin Daily (Multiple Vitamin) 1 Tab Tab 1 Tab PO DAILY Melatonin 10 Mg-1 Mg Tab 10 Mg PO HS PRN Lisinopril 10 Mg Tab 10 Mg PO DAILY Geodon (Ziprasidone) 40 Mg Cap 40 Mg PO HS Nasacort Allergy 24Hr Nasal [place] (Triamcinolone Acetonide Nasal [place]) 55 Mcg Spr 110 Mcg EACH NARE DAILY Synthroid (Levothyroxine Sodium) 25 Mcg Tab 25 Mcg PO DAILY Potassium Chloride ER (Potassium Chloride) 10 Meq Cap 10 Meq PO DAILY Naphcon-A Opth Drops (Naphazoline-Pheniramine Opth Drops) 0.025-0.3 % Soln 1 Drop EACH EYE BID Prevacid (Lansoprazole) 30 Mg Capdr 30 Mg PO BID Lamotrigine 100 Mg Tab 100 Mg PO HS Klonopin (Clonazepam) 1 Mg Tab 1.5 Mg PO DAILY Cetirizine (Cetirizine HCl) 10 Mg Tab 10 Mg DAILY Review of Systems General / Constitutional: No: Fever Eyes: No: Visual changes HENT: Positive: Lightheadedness, No: Headaches Cardiovascular: No: Chest Pain or Discomfort Respiratory: No: Shortness of Breath Gastrointestinal: No: Abdominal Pain Genitourinary: No: Dysuria Musculoskeletal: No: Pain Skin: No Rash Neurologic: Positive: Dizziness, No: Weakness, Headache Psychiatric: No: Depression Endocrine: No: Polydipsia Hematologic/Lymphatic: No: Easy Bruising Physical Exam Narrative GENERAL: moderate distress SKIN: Focused skin assessment warm/dry. HEAD: Atraumatic. Normocephalic. EYES: Pupils equal and round. No scleral icterus. No injection or drainage. ENT: No nasal bleeding or discharge. Mucous membranes pink and moist. NECK: Trachea midline. No JVD. CARDIOVASCULAR: Regular rate and rhythm. No murmur appreciated. RESPIRATORY: No accessory muscle use. Clear to auscultation. Breath sounds equal bilaterally. GASTROINTESTINAL: Abdomen soft, non-tender, nondistended. Hepatic and splenic margins not palpable. MUSCULOSKELETAL: No obvious deformities. No clubbing. No cyanosis. No edema. NEUROLOGICAL: Awake and alert. No obvious cranial nerve deficits. Motor grossly within normal limits. Normal speech. PSYCHIATRIC: anxious mood and affect; insight and judgment normal. Data Data Last Documented VS Vital Signs Date Time Temp Pulse Resp B/P (MAP) Pulse Ox O2 Delivery O2 Flow Rate FiO2 10/09/17 15:23 69 16 175/69 (104) 100 Room Air 10/09/17 13:24 98.8 Orders Orders Urinalysis - C+S If Indicated (10/09/17 13:17) Electrocardiogram (10/09/17 13:43) Prothrombin Time / Inr (Pt) (10/09/17 13:43) Act Partial Throm Time (Ptt) (10/09/17 13:43) Complete Blood Count With Diff (10/09/17 13:43) Comprehensive Metabolic Panel (10/09/17 13:43) Creatine Kinase (Cpk) (10/09/17 13:43) Troponin I (10/09/17 13:43) Chest, Single Ap (10/09/17 13:43) Ecg Monitoring (10/09/17 13:43) Iv Access Insert/Monitor (10/09/17 13:43) Oximetry (10/09/17 13:43) Sodium Chloride 0.9% Flush (Ns Flush) (10/09/17 13:45) Mri Brain W/O Contrast (10/09/17 ) Sodium Chlor 0.9% 1000 Ml Inj (Ns 1000 M (10/09/17 13:45) Meclizine (Antivert) (10/09/17 13:45) Ondansetron Inj (Zofran Inj) (10/09/17 14:15) Famotidine (Pepcid) (10/09/17 14:30) Labs Laboratory Tests Test 10/09/17 13:20 10/09/17 13:35 Urine Collection Type CLEAN CATCH Urine Color YELLOW Urine Turbidity CLEAR Urine pH 5.5 Urine Specific [place] 1.010 Urine Protein NEG mg/dL Urine Glucose (UA) NEG mg/dL Urine Ketones NEG mg/dL Urine Occult Blood TRACE Urine Nitrite NEG Urine Bilirubin NEG Urine Urobilinogen 0.2 MG/DL Urine Leukocyte Esterase NEG Urine RBC 0-3 /hpf Urine WBC 0-2 /hpf Urine Squamous Epithelial Cells 0-5 /hpf Microscopic Urinalysis Comment CULT NOT INDICATED Urine Collection Time 13:20 White Blood Count 8.8 TH/MM3 Red Blood Count 5.08 MIL/MM3 Hemoglobin 14.8 GM/DL Hematocrit 43.0 % Mean Corpuscular Volume 84.7 FL Mean Corpuscular Hemoglobin 29.2 PG Mean Corpuscular Hemoglobin Concent 34.5 % Red Cell Distribution Width 12.5 % Platelet Count 398 TH/MM3 Mean Platelet Volume 7.4 FL Neutrophils (%) (Auto) 80.4 % Lymphocytes (%) (Auto) 12.2 % Monocytes (%) (Auto) 5.7 % Eosinophils (%) (Auto) 0.3 % Basophils (%) (Auto) 1.4 % Neutrophils # (Auto) 7.1 TH/MM3 Lymphocytes # (Auto) 1.1 TH/MM3 Monocytes # (Auto) 0.5 TH/MM3 Eosinophils # (Auto) 0.0 TH/MM3 Basophils # (Auto) 0.1 TH/MM3 CBC Comment DIFF FINAL Differential Comment Prothrombin Time 9.9 SEC Prothromb Time International Ratio 1.0 RATIO Activated Partial Thromboplast Time 25.7 SEC Blood Urea Nitrogen 14 MG/DL Creatinine 0.71 MG/DL Random Glucose 116 MG/DL Total Protein 7.8 GM/DL Albumin 4.2 GM/DL Calcium Level 9.3 MG/DL Alkaline Phosphatase 60 U/L Aspartate Amino Transf (AST/SGOT) 23 U/L Alanine Aminotransferase (ALT/SGPT) 18 U/L Total Bilirubin 0.6 MG/DL Sodium Level 125 MEQ/L Potassium Level 4.6 MEQ/L Chloride Level 91 MEQ/L Carbon Dioxide Level 24.2 MEQ/L Anion Gap 10 MEQ/L Estimat Glomerular Filtration Rate 80 ML/MIN Total Creatine Kinase 144 U/L Troponin I LESS THAN 0.02 NG/ML MDM Medical Decision Making Medical Screen Exam Complete: Yes Emergency Medical Condition: Yes Medical Record Reviewed: Yes Interpretation(s) EKG at 1402: NSR at 62bpm, qt/qtc: 388/394, no acute st or t wave changes. Vital Signs Date Time Temp Pulse Resp B/P (MAP) Pulse Ox O2 Delivery O2 Flow Rate FiO2 10/09/17 13:30 16 97 Room Air 10/09/17 13:24 98.8 80 16 156/70 (98) 97 10/09/17 13:17 98.8 80 16 156/70 (98) 97 Room Air Differential Diagnosis VBI, UTI, electrolyte abnormalities, ACS, vertigo Narrative Course 77-year-old female who returns to the emergency room for evaluation of dizziness which has been ongoing for the past month. During the course of the patients emergency department visit, the patients history, examination, and differential diagnosis were reviewed with the patient. The patient was placed on a monitoring engineer with oximetry and frequent blood pressure monitoring. The patient had an IV access obtained and blood work sent for analysis. The patient was initially provided IV fluids as well as Antivert. The patients laboratory studies were reviewed and remarkable for : CBC & BMP Diagram 10/09/17 13:35 Total Protein 7.8, Albumin 4.2, Calcium Level 9.3, Alkaline Phosphatase 60, Aspartate Amino Transf (AST/SGOT) 23, Alanine Aminotransferase (ALT/SGPT) 18, Total Bilirubin 0.6 Patient with a sodium of 125 with intractable dizziness, she will require admission for this at this time as she is not feeling any better Case reviewed with Dr. Feilpe, patients pcp: Chest xray: possible right upper lobe mass versus hypertrophic change - this was reviewed with Dr. Felipe as this will need to be followed up as outpatient - further studies will be ordered by Dr. Felipe as outpatient Patient also with baseline hyponatremia, will require fluid restriction - patient has known hyponatremia, sodium 129 is pt's baseline. Plan to have patient discharged with follow up with Dr. Felipe as she will need to follow up at the [facility] Last Impressions Chest X-Ray 10/09/17 1343 Signed Impressions: Service Date/Time: Monday, October 09, 2017 14:32 - CONCLUSION: 1. No definite acute abnormality seen. 2. Possible right upper lobe mass versus hypertrophic change at the first costochondral junction. This area could be further evaluated with a CT examination of the chest. Simeon Hunter MD MRI of brain with no acute abnormality Patient was recently admitted to the hospital for evaluation of dizziness and hyponatremia. Hyponatremia is at baseline for patient -discussed with patient need for fluid restriction as this is the main cause of her hyponatremia as per Dr. Olivares, her PCP. As per patient's primary care doctor, patient had a full workup for her dizziness last week, patient will need to follow-up at the vestibular rehab center and not admitted to the hospital. She is to call Dr. Olivares in the morning for early his appointment to help with a follow-up appointment. Patient does not meet inpatient criteria at this time. Dr. Olivares will follow up with patient closely as outpatient. All incidental findings were reviewed with patient and her daughter, they understand that lung mass will need further workup as outpatient by her primary care doctor Diagnosis Primary Impression: Hyponatremia Additional Impressions: Dizziness Vertigo Mass of lung Admitting Information Admitting Physician Requests: Observation Patient Instructions: General Instructions Additional Instructions: Please give patient a copy of her studies at discharge Please call your primary care doctor tomorrow morning for earliest follow-up. Please make an appointment for the vestibular rehab. Please follow up with your primary care doctor in 2-3 days Return to the ER if symptoms worsen or progress Return to the ER as needed Please monitor the amount of fluids you are drinking Please have your primary care doctor follow up on all incidental findings from today Disposition: 01 DISCHARGE HOME Condition: Stable Sabiha Santos DO Oct 09, 2017 13:53
[2017-10-09 13:57] LABS: AUTOMATED NEUTROPHIL # 7.1 TH/MM3 (1.8-7.7); BASOPHIL # 0.1 TH/MM3 (0-0.2); BASOPHIL % 1.4 % (0.0-2.0); EOSINOPHIL % 0.3 % (0.0-4.0); HEMOGLOBIN 14.8 GM/DL (11.6-15.3); LYMPH % 12.2 % (9.0-44.0); LYMPHOCYTE # 1.1 TH/MM3 (1.0-4.8); MEAN CELL VOLUME 84.7 FL (80.0-100.0); MEAN CORPUSCULAR HEMOGLOBIN 29.2 PG (27.0-34.0); MEAN CORPUSCULAR HGB CONC 34.5 % (32.0-36.0); MEAN PLATELET VOLUME 7.4 FL (7.0-11.0); MONO % 5.7 % (0.0-8.0); MONOCYTE # 0.5 TH/MM3 (0-0.9); NEUT % 80.4 % (16.0-70.0); PLATELET COUNT 398 TH/MM3 (150-450); RED BLOOD COUNT 5.08 MIL/MM3 (4.00-5.30); RED CELL DISTRIBUTION WIDTH 12.5 % (11.6-17.2); WHITE BLOOD COUNT 8.8 TH/MM3 (4.0-11.0)
[2017-10-09 14:00] VITALS: O2SAT 97
[2017-10-09 14:13] LABS: PROTHROMBIN TIME - PATIENT 9.9 SEC (9.8-11.6)
[2017-10-09] MEDS ORDERED: ONDANSETRON HCL 4 MG/2 ML VIAL IV PUSH ONE (14:15)
[2017-10-09] MEDS ORDERED: FAMOTIDINE 20 MG TAB PO ONE (14:30)
[2017-10-09 14:38] LABS: ALBUMIN 4.2 GM/DL (3.4-5.0); ALKALINE PHOSPHATASE 60 U/L (45-117); ALT (GPT) 18 U/L (10-53); AST (GOT) 23 U/L (15-37); BICARBONATE 24.2 MEQ/L (21.0-32.0); BLOOD UREA NITROGEN 14 MG/DL (7-18); CALCIUM 9.3 MG/DL (8.5-10.1); CHLORIDE 91 MEQ/L (98-107); CREATININE 0.71 MG/DL (0.50-1.00); GLOMERULAR FILTRATION RATE 80 ML/MIN (>89); GLUCOSE,RANDOM 116 MG/DL (74-106); TOTAL BILIRUBIN ADULT 0.6 MG/DL (0.2-1.0); TOTAL PROTEIN 7.8 GM/DL (6.4-8.2); TROPONIN I LESS THAN 0.02 NG/ML (0.02-0.05)
[2017-10-09 15:05] LABS: SODIUM (NA) 125 MEQ/L (136-145)
[2017-10-09 15:23] VITALS: BP 175/69; PULSE 69; RESP 16; O2SAT 100
--- NOTE | 2017-10-09 15:40 | RADRPT ---
EXAM DATE/TIME: 10/09/2017 14:32 [facility] COMPARISON: CHEST SINGLE AP, October 23, 2015, 21:52. CHEST SINGLE AP, September 29, 2017, 19:45. INDICATIONS : Nausea, weak, dizzy MEDICAL HISTORY : None. SURGICAL HISTORY : None. ENCOUNTER: Initial ACUITY: 1 month PAIN SCORE: 0/10 LOCATION: Bilateral chest FINDINGS: The heart size is normal. The lungs are free of focal consolidation. There is a focal air density in the right upper chest. Center of this related to a lung nodule versus hypertrophic change at the firs t costochondral junction. This should be further evaluated. No effusion is seen. There is a levocurva ture of the thoracic spine. CONCLUSION: 1. No definite acute abnormality seen. 2. Possible right upper lobe mass versus hypertrophic change at the first costochondral junction. Thi s area could be further evaluated with a CT examination of the chest. Simeon Hunter MD on October 09, 2017 at 15:36 Board Certified Radiologist. This report was verified electronically.
--- NOTE | 2017-10-09 16:05 | RADRPT ---
EXAM DATE/TIME: 10/09/2017 15:15 [facility] COMPARISON: CT BRAIN W/O CONTRAST, September 29, 2017, 19:49. MRI BRAIN W/O CONTRAST, July 10, 2012, 15:39. INDICATIONS : Dizziness. MEDICAL HISTORY : Hypertension. SURGICAL HISTORY : Thyroidectomy. Tonsillectomy. Total knee replacement, right. ENCOUNTER: Initial ACUITY: 1 day PAIN SCORE: 0/10 LOCATION: cranial TECHNIQUE: Multiplanar, multisequence MRI of the brain was performed without contrast. FINDINGS: CEREBRUM: The ventricles are normal for age. No evidence of midline shift, mass lesion, hemorrhage or acute in farction. No extraaxial fluid collections are seen. The pituitary gland and suprasellar cistern are normal in configuration. WHITE MATTER: [id number] periventricular and focal deep white matter T2 prolongation. POSTERIOR FOSSA: The cerebellum and brainstem are intact. The 4th ventricle is midline. The cerebellopontine angle is unremarkable. The cerebellar tonsils are normal in position. DIFFUSION IMAGING: No focal areas of restricted diffusion are seen. No evidence of acute infarction. EXTRACRANIAL: The visualized portions of the orbits and paranasal sinuses are unremarkable. CONCLUSION: 1. Senescent changes with mild to moderate periventricular small vessel ischemic white matter [place]. 2. No acute abnormality. Specifically, no evidence for acute infarction, hemorrhage or mass. Carlos Alberto Gordon MD on October 09, 2017 at 16:00 Board Certified Radiologist. This report was verified electronically.
[2017-10-09] MEDS ORDERED: clonazePAM 0.5 MG TAB PO ONE (16:45)
[2017-10-09] MEDS ORDERED: clonazePAM 1 MG TAB PO ONE (17:00)
--- NOTE | 2017-10-10 21:23 | EKG ---
Date Performed: 10/09/2017 Time Performed: 14:02:23 PTAGE: 77 years EKG: Sinus rhythm NORMAL ECG PREVIOUS TRACING : 09/29/2017 21.16 Since the previous tracing, no significant change noted DOCTOR: Jonathan Glass Interpretating Date/Time 10/10/2017 21:22:12
== END 2017-10-09 17:18 | disposition home or self-care (01) ==
LOC: PHED 13:10
DX: E87.1 Hypo-osmolality and hyponatremia (principal); R42 Dizziness and giddiness; R91.8 Other nonspecific abnormal finding of lung field; I10 Essential (primary) hypertension; K21.9 Gastro-esophageal reflux disease without esophagitis; F31.9 Bipolar disorder, unspecified; E03.9 Hypothyroidism, unspecified; E78.00 Pure hypercholesterolemia, unspecified; G47.00 Insomnia, unspecified
CPT/HCPCS: 70551; 71045; 80053; 81001; 82550; 84484; 85025; 85610; 85730; 93005; 96360; 99285; J7030

== ENCOUNTER 2017-11-04 15:39 | Observation (INO) | payer MEDICARE ==
[~2017-11-04] VITALS: Ht 152.4 cm; Wt 49.0 kg
[~2017-11-04 15:39] MED LIST changes: -CETI10; +CETI10 PO
[2017-11-04 15:49] VITALS: BP 179/84; PULSE 82; RESP 16; TEMP 96.5; O2SAT 95
[2017-11-04] MEDS ORDERED: SODIUM CHLOR 0.9% 1000 ML INJ 1,000 ML IV ONE (16:21)
[2017-11-04] MEDS ORDERED: ONDANSETRON ODT 4 MG TAB PO ONE (16:30)
[2017-11-04] MEDS ORDERED: ACETAMINOPHEN 325 MG TAB PO ONE (16:30)
--- NOTE | 2017-11-04 17:03 | PD ---
HPI Chief Complaint: General Weakness Time Seen by Provider: 16:09 Travel History International Travel<30 days: No Contact w/Intl Traveler<30days: No Traveled to known affect area: No History of Present Illness HPI 77-year-old female coming in from her home where she lives by herself , with complaints of generalized weakness, shaking, and headache. Patient has history of recent otitis externa followed by her ear nose and throat physician currently being treated with Ciprodex drops to the right ear. Patient denies fever or chills, but is very vague in her symptoms. She states she does have a headache which she describes as about a 7-8 out of 10. She is mildly nauseous but denies vomiting or diarrhea. She denies abdominal pain or changes in her urine. Patient is a poor historian. Patient has multiple allergies including prednisone, sulfa, aspirin, azithromycin, erythromycin, penicillin, CT dye. PFSH Past Medical History Blood Disorders: No Bipolar Disorder: Yes Anxiety: Yes Depression: Yes (bipolar) Cancer: Yes (SKIN MELANOMA REMOVED) Cardiovascular Problems: Yes High Cholesterol: Yes Diabetes: No Diminished Hearing: No Endocrine: Yes Gastrointestinal Disorders: Yes (ACID REFLEX AND ULCERS) GERD: Yes Genitourinary: No Hepatitis: No Hiatal Hernia: No Hypertension: Yes (IN PAST, OFF MEDICATION) Insomnia: Yes Musculoskeletal: Yes Neurologic: No Psychiatric: Yes (ANXIETY AND DEPRESSION, BIPOLAR) Reproductive: No Respiratory: Yes (ALLERGIES TO POLLEN/DUST) Thyroid Disease: Yes (HYPOTHYROIDISM) PNEUMOCCOCAL Vaccine (Year): 1 Menopausal: Yes : 2 Para: 2 Miscarriage: 0 : 0 Ovarian Cysts: Yes (RIGHT TUBE AND OVARY REMOVED) Past Surgical History Abdominal Surgery: No Arteriovenous Shunt: No Body Medical Devices: DENTAL TOP LEFT, BOTTOM RIGHT, L KNEE REPLACEMENT Cardiac Surgery: No Ear Surgery: No Endocrine Surgery: Yes (PARTIAL THYROIDECTOMY) Eye Surgery: No Genitourinary Surgery: No Gynecologic Surgery: Yes ( right ovary and right tube removed) Insulin Pump: No Joint Replacement: Yes (LEFT TKR) Oral Surgery: Yes (tongue biopsy ) Thoracic Surgery: No Other Surgery: Yes (PARTIAL THYROIDECTOMY) Social History Alcohol Use: Yes (SOCIAL MIX DRINKS) Tobacco Use: No Substance Use: No Allergies-Medications (Allergen,Severity, Reaction): Coded Allergies: azithromycin (Verified Allergy, Severe, very sick, 11/04/17) Sulfa (Sulfonamide Antibiotics) (Verified Allergy, Intermediate, Nausea/ Vomiting, 11/04/17) diatrizoate meglumine (Verified Allergy, Mild, HIVES, 11/04/17) gadobenic acid (Verified Allergy, Mild, HIVES, 11/04/17) gadodiamide (Verified Allergy, Mild, HIVES, 11/04/17) gadoteridol (Verified Allergy, Mild, HIVES, 11/04/17) iodine (Verified Allergy, Mild, HIVES AND NAUSEA, 11/04/17) iodixanol (Verified Allergy, Mild, HIVES, 11/04/17) iohexol (Verified Allergy, Mild, HIVES, 11/04/17) penicillin G (Verified Allergy, Mild, HIVES, 11/04/17) potassium iodide (Verified Allergy, Mild, HIVES AND NAUSEA, 11/04/17) povidone-iodine (Verified Allergy, Mild, HIVES AND NAUSEA, 11/04/17) sodium iodide (Verified Allergy, Mild, HIVES AND NAUSEA, 11/04/17) sodium iodide (Verified Allergy, Mild, HIVES AND NAUSEA, 11/04/17) aspirin (Verified Adverse Reaction, Severe, PT HAS ULCER, 11/04/17) erythromycin base (Verified Adverse Reaction, Severe, TOO TIRED TO GET OUT OF BED, 11/04/17) Uncoded Allergies: PREDNISONE/CORTISONE (Allergy, Severe, 05/28/11) Reported Meds & Prescriptions Reported Meds & Active Scripts Active Reported Floxin Otic (Ofloxacin Otic) 0.3 % Jing 4 Drop EACH EAR BID Lisinopril 10 Mg Tab 10 Mg PO DAILY Klonopin (Clonazepam) 0.5 Mg Tab 1 Mg PO HS Clonazepam 0.5 Mg Tab 0.5 Mg PO DAILY IN THE AM Vitamin D-1000 (Cholecalciferol) 1,000 Unit Tab 2,000 Units PO DAILY Multi-Vitamin Daily (Multiple Vitamin) 1 Tab Tab 1 Tab PO DAILY Melatonin 10 Mg-1 Mg Tab 10 Mg PO HS PRN Lisinopril 10 Mg Tab 10 Mg PO DAILY Geodon (Ziprasidone) 40 Mg Cap 40 Mg PO HS Synthroid (Levothyroxine Sodium) 25 Mcg Tab 25 Mcg PO DAILY Potassium Chloride ER (Potassium Chloride) 10 Meq Cap 10 Meq PO DAILY Prevacid (Lansoprazole) 30 Mg Capdr 30 Mg PO BID Lamotrigine 100 Mg Tab 200 Mg PO HS Cetirizine (Cetirizine HCl) 10 Mg Tab 10 Mg PO DAILY Review of Systems Except as stated in HPI: all other systems reviewed are Neg General / Constitutional: Positive: Other (Shakes.), No: Fever, Chills Eyes: No: Visual changes HENT: Positive: Headaches, Ear Discharge, Earache, No: Vertigo, Lightheadedness , Sore Throat, Rhinitis, Rhinorrhea, Congestion, Nosebleed, Neck Stiffness, Neck Pain, Masses, Gingival Bleeding, Dental Difficulties Cardiovascular: No: Chest Pain or Discomfort Respiratory: No: Cough, Shortness of Breath, Wheezing Gastrointestinal: Positive: Nausea, No: Vomiting, Diarrhea, Abdominal Pain Genitourinary: No: Urgency, Frequency, Dysuria, Pelvic Pain, Flank Pain Musculoskeletal: No: Pain Skin: No Rash Neurologic: No: Weakness Psychiatric: No: Depression Endocrine: No: Polydipsia Hematologic/Lymphatic: No: Easy Bruising Physical Exam Narrative GENERAL: The patient appears ill but not septic. SKIN: Warm and dry. Normal color. Normal turgor. HEAD: Atraumatic. Normocephalic. EYES: Pupils equal and round. No scleral icterus. No injection or drainage. ENT: No nasal bleeding or discharge. Mucous membranes pink and moist. TMs show right otitis externa with yellowish discharge. Left TM appears unremarkable. Posterior pharynx is clear. NECK: Trachea midline. Supple and nontender without significant lymphadenopathy.. CARDIOVASCULAR: Regular rate and rhythm. No murmurs gallops or rubs RESPIRATORY: No accessory muscle use. Clear to auscultation. Breath sounds equal bilaterally. GASTROINTESTINAL: Abdomen soft, non-tender, nondistended. Hepatic and splenic margins not palpable. MUSCULOSKELETAL: Extremities without clubbing, cyanosis, or edema. No obvious deformities. NEUROLOGICAL: Awake and alert. No obvious cranial nerve deficits. Motor grossly within normal limits. Five out of 5 muscle strength in the arms and legs. Normal speech. PSYCHIATRIC: Appropriate mood and affect; insight and judgment normal. Data Data Last Documented VS Vital Signs Date Time Temp Pulse Resp B/P (MAP) Pulse Ox O2 Delivery O2 Flow Rate FiO2 11/04/17 20:22 72 20 171/81 (111) 74 145/82 (103) 72 170/85 (113) 11/04/17 17:13 97 Room Air 11/04/17 15:49 96.5 Orders Orders Sepsis Workup Initiated (11/04/17 ) Electrocardiogram (11/04/17 16:21) Complete Blood Count With Diff (11/04/17 16:21) Comprehensive Metabolic Panel (11/04/17 16:21) Prothrombin Time / Inr (Pt) (11/04/17 16:21) Act Partial Throm Time (Ptt) (11/04/17 16:21) Lactic Acid Sepsis Protocol (11/04/17 16:21) Magnesium (Mg) (11/04/17 16:21) Phosphorus (Po4) (11/04/17 16:21) Lipase (11/04/17 16:21) Ckmb (Isoenzyme) Profile (11/04/17 16:21) Troponin I (11/04/17 16:21) Urinalysis - C+S If Indicated (11/04/17 16:21) Blood Culture (11/04/17 16:21) Chest, Single Ap (11/04/17 16:21) Blood Glucose (11/04/17 16:21) Ecg Monitoring (11/04/17 16:21) Iv Access Insert/Monitor (11/04/17 16:21) Oximetry (11/04/17 16:21) Oxygen Administration (11/04/17 16:21) Acetaminophen (Tylenol) (11/04/17 16:30) Sodium Chlor 0.9% 1000 Ml Inj (Ns 1000 M (11/04/17 16:21) Ondansetron Odt (Zofran Odt) (11/04/17 16:30) Ct Brain W/O Iv Contrast(Rout) (11/04/17 16:27) CKMB (11/04/17 17:05) CKMB% (11/04/17 17:05) Orthostatic Vital Signs (11/04/17 19:59) Labs Laboratory Tests Test 11/04/17 17:05 11/04/17 17:30 White Blood Count 8.8 TH/MM3 Red Blood Count 5.08 MIL/MM3 Hemoglobin 14.5 GM/DL Hematocrit 43.5 % Mean Corpuscular Volume 85.5 FL Mean Corpuscular Hemoglobin 28.6 PG Mean Corpuscular Hemoglobin Concent 33.5 % Red Cell Distribution Width 13.0 % Platelet Count 376 TH/MM3 Mean Platelet Volume 6.8 FL Neutrophils (%) (Auto) 82.5 % Lymphocytes (%) (Auto) 10.9 % Monocytes (%) (Auto) 6.1 % Eosinophils (%) (Auto) 0.1 % Basophils (%) (Auto) 0.4 % Neutrophils # (Auto) 7.2 TH/MM3 Lymphocytes # (Auto) 1.0 TH/MM3 Monocytes # (Auto) 0.5 TH/MM3 Eosinophils # (Auto) 0.0 TH/MM3 Basophils # (Auto) 0.0 TH/MM3 CBC Comment DIFF FINAL Differential Comment Prothrombin Time 9.9 SEC Prothromb Time International Ratio 1.0 RATIO Activated Partial Thromboplast Time 26.7 SEC Blood Urea Nitrogen 15 MG/DL Creatinine 0.78 MG/DL Random Glucose 95 MG/DL Total Protein 7.7 GM/DL Albumin 4.3 GM/DL Calcium Level 9.2 MG/DL Phosphorus Level 3.8 MG/DL Magnesium Level 2.4 MG/DL Alkaline Phosphatase 68 U/L Aspartate Amino Transf (AST/SGOT) 25 U/L Alanine Aminotransferase (ALT/SGPT) 29 U/L Total Bilirubin 0.2 MG/DL Sodium Level 129 MEQ/L Potassium Level 4.7 MEQ/L Chloride Level 92 MEQ/L Carbon Dioxide Level 27.0 MEQ/L Anion Gap 10 MEQ/L Estimat Glomerular Filtration Rate 72 ML/MIN Lactic Acid Level 0.9 mmol/L Total Creatine Kinase 156 U/L Creatine Kinase MB 6.6 NG/ML Troponin I LESS THAN 0.02 NG/ML Lipase 141 U/L Urine Color YELLOW Urine Turbidity CLEAR Urine pH 6.0 Urine Specific [place] 1.012 Urine Protein NEG mg/dL Urine Glucose (UA) NEG mg/dL Urine Ketones NEG mg/dL Urine Occult Blood NEG Urine Nitrite NEG Urine Bilirubin NEG Urine Urobilinogen LESS THAN 2.0 MG/DL Urine Leukocyte Esterase MOD Urine WBC 4 /hpf Urine Squamous Epithelial Cells 1 /hpf Microscopic Urinalysis Comment CATH-CULT NOT IND MDM Medical Decision Making Medical Screen Exam Complete: Yes Emergency Medical Condition: Yes Differential Diagnosis Otitis externa. Sepsis. Urosepsis Narrative Course Patient appears medically stable at time of exam. Sepsis protocol is initiated based on the patient's history. Labs are ordered including CBC, CMP, lactic acid, lipase, blood cultures 2, urinalysis, cardiac panel. Patient is given 1000 mL normal saline bolus. Patient is given 4 mg of ondansetron p.o. Patient is given acetaminophen 650 mg p.o. Chest x-ray is ordered. CT of the head is ordered. EKG is performed showing normal sinus rhythm without significant changes. This is reviewed with Dr. Lenz Chest x-ray is unremarkable per radiologist. CBC is unremarkable. Coagulation studies are normal. CMP significant for sodium 129, potassium is 4.7, chloride is 92. BUN/ creatinine is normal. Lactic acid is normal at 0.9. First troponin is less than 0.02. CK-MB is elevated at 6.6 Urinalysis is negative for signs of infection. CT is unremarkable for acute process. Orthostatics are ordered and found to be acutely positive. Calls placed to the hospitalist as this patient is an unsafe discharge due to her generalized weakness and orthostatic dizziness. She has a history of chronic hyponatremia as well. Diagnosis Primary Impression: Weakness generalized Additional Impressions: Orthostatic dizziness Chronic hyponatremia Right otitis externa Qualified Codes: H60.91 - Unspecified otitis externa, right ear Admitting Information Admitting Physician Requests: Observation Condition: Stable Meliton Ly November 04, 2017 17:02
[2017-11-04 17:13] VITALS: RESP 25; O2SAT 97
--- NOTE | 2017-11-04 17:22 | RADRPT ---
EXAM DATE: 11/04/2017 5:12 PM EDT AGE/SEX: 77 years / Female INDICATIONS: Shortness of breath, fever and dizziness. CLINICAL DATA: This is the patient's initial encounter. Patient reports that signs and symptoms have been present for 1 day and indicates a pain score of 0/10. MEDICAL/SURGICAL HISTORY: Hypertension. None. COMPARISON: [facility], CHEST SINGLE AP, 10/09/2017. . FINDINGS: A single AP view of the chest demonstrates the lungs to be symmetrically aerated without evidence of mass, infiltrate or effusion. The cardiomediastinal contours are unremarkable. Osseous structures a re intact. CONCLUSION: Negative examination. Electronically signed by: Simeon Smith MD 11/04/2017 5:20 PM EDT
[2017-11-04 17:29] LABS: AUTOMATED NEUTROPHIL # 7.2 TH/MM3 (1.8-7.7); BASOPHIL % 0.4 % (0.0-2.0); EOSINOPHIL % 0.1 % (0.0-4.0); HEMATOCRIT 43.5 % (35.0-46.0); HEMOGLOBIN 14.5 GM/DL (11.6-15.3); LYMPH % 10.9 % (9.0-44.0); MEAN CELL VOLUME 85.5 FL (80.0-100.0); MEAN CORPUSCULAR HEMOGLOBIN 28.6 PG (27.0-34.0); MEAN CORPUSCULAR HGB CONC 33.5 % (32.0-36.0); MEAN PLATELET VOLUME 6.8 FL (7.0-11.0); MONO % 6.1 % (0.0-8.0); MONOCYTE # 0.5 TH/MM3 (0-0.9); NEUT % 82.5 % (16.0-70.0); PLATELET COUNT 376 TH/MM3 (150-450); RED BLOOD COUNT 5.08 MIL/MM3 (4.00-5.30); WHITE BLOOD COUNT 8.8 TH/MM3 (4.0-11.0)
[2017-11-04 17:38] LABS: PROTHROMBIN TIME - PATIENT 9.9 SEC (9.8-11.6)
[2017-11-04] MEDS ORDERED: CLON.5 PO (17:48)
[2017-11-04] MEDS ORDERED: LISI10TA3 PO (17:48)
[2017-11-04] MEDS ORDERED: OFLO1SOL EACH EAR (17:48)
[2017-11-04] MEDS ORDERED: CLON0.5T PO (17:48)
[2017-11-04 17:53] LABS: ALBUMIN 4.3 GM/DL (3.4-5.0); ALT (GPT) 29 U/L (10-53); AST (GOT) 25 U/L (15-37); BLOOD UREA NITROGEN 15 MG/DL (7-18); CALCIUM 9.2 MG/DL (8.5-10.1); CHLORIDE 92 MEQ/L (98-107); CREATININE 0.78 MG/DL (0.50-1.00); GLOMERULAR FILTRATION RATE 72 ML/MIN (>89); GLUCOSE,RANDOM 95 MG/DL (74-106); MAGNESIUM 2.4 MG/DL (1.5-2.5); PHOSPHORUS 3.8 MG/DL (2.5-4.9); SODIUM (NA) 129 MEQ/L (136-145)
[2017-11-04 17:56] LABS: ALKALINE PHOSPHATASE 68 U/L (45-117); TOTAL BILIRUBIN ADULT 0.2 MG/DL (0.2-1.0); TOTAL PROTEIN 7.7 GM/DL (6.4-8.2); TROPONIN I LESS THAN 0.02 NG/ML (0.02-0.05)
[2017-11-04 18:12] LABS: BILIRUBIN, URINE NEG (NEG); BLOOD, URINE NEG (NEG); GLUCOSE,URINE NEG (NEG); KETONE, URINE NEG (NEG); NITRITE,URINE NEG (NEG); SQUAMOUS EPITHELIAL CELL URINE 1 /hpf (0-5); URINE COLOR YELLOW (YELLW/STRAW); URINE LEUKOCYTE ESTERASE MOD (NEG)
--- NOTE | 2017-11-04 19:39 | RADRPT ---
EXAM DATE: 11/04/2017 5:50 PM EDT AGE/SEX: 77 years / Female INDICATIONS: Cephalgia, general weakness. CLINICAL DATA: This is the patient's initial encounter. Patient reports that signs and symptoms have been present for 1 day and indicates a pain score of 5/10. MEDICAL/SURGICAL HISTORY: Cardiovascular disease. Hypertension. Skin cancer. Thyroidectomy. RADIATION DOSE: 45.31 CTDI (mGy) COMPARISON: [facility] [place], CT BRAIN W/O CONTRAST, 09/29/2017. . TECHNIQUE: CT of the head without contrast. Using automated exposure control and adjustment of the mA and/or kV according to patient size, radiation dose was kept as low as reasonably achievable to ob tain optimal diagnostic quality images. FINDINGS: Cerebrum: The ventricles are normal for age. No evidence of midline shift, mass lesion, hemorrhage or acute infarction. No extraaxial fluid collections are seen. Posterior Fossa: The cerebellum and brainstem are intact. The 4th ventricle is midline. The cerebe llopontine angle is unremarkable. Extracranial: The visualized portion of the orbits is intact. Skull: The calvaria is intact. No evidence of skull fracture. CONCLUSION: 1. No acute intracranial abnormalities. No significant change from September 2017. Electronically signed by: Joe Cooley MD 11/04/2017 7:38 PM EDT
[2017-11-04 20:22] VITALS: BP_SYST 145; BP_SYST 170; BP_SYST 171; BP_DIAS 81; BP_DIAS 82; BP_DIAS 85; RESP 20
[2017-11-04] MEDS ORDERED: LACTULOSE SYRUP 20 GM/30 ML CUP PO PRN (21:45)
[2017-11-04] MEDS ORDERED: BISACODYL 10 MG SUPP RECTAL PRN (21:45)
[2017-11-04] MEDS ORDERED: MELATONIN 10 MG PO PRN (21:45)
[2017-11-04] MEDS ORDERED: NALOXONE HCL 0.4 MG/ML AMP IV PUSH PRN (21:45)
[2017-11-04] MEDS ORDERED: SODIUM CHLORIDE 0.9% FLUSH 10 ML FLUSH IV FLUSH PRN (21:45)
[2017-11-04] MEDS ORDERED: SENNOSIDES 8.6 MG TAB PO PRN (21:45)
[2017-11-04] MEDS ORDERED: MAGNESIUM HYDROXIDE SUSP 30 ML CUP PO PRN (21:45)
[2017-11-04 21:50] VITALS: BP 170/81; PULSE 71; RESP 16; O2SAT 98
--- NOTE | 2017-11-04 21:50 | HHI.HP ---
HPI Service [facility] Hospitalists Primary Care Physician Imelda Espinosa MD Admission Diagnosis Orthostatic Hypotention/Weakness/Chronic Hyponatremia Chief Complaint: generalized weakness ,dizziness Travel History International Travel<30 Days: No Contact w/Intl Traveler <30 Da: No Traveled to Known Affected Are: No History of Present Illness 77-year-old female coming in from her home where she lives by herself , with complaints of generalized weakness, shaking, and headache. Patient has history of recent otitis externa followed by her ear nose and throat physician currently being treated with Ciprodex drops to the right ear. Patient denies fever or chills, but is very vague in her symptoms. She states she does have a headache which she describes as about a 7-8 out of 10. She is mildly nauseous but denies vomiting or diarrhea. She denies abdominal pain or changes in her urine. Patient is a poor historian. Patient has multiple allergies including prednisone, sulfa, aspirin, azithromycin, erythromycin, penicillin, CT dye. In er was found to be mildly orthostatic and has rt ear otitis which is contributing to symptoms . Patient lives alone and may need in patient rehab, admit to observation. Review of Systems Ears, nose, mouth, throat: COMPLAINS OF: Vertigo, Ear Pain Past Family Social History Past Medical History Bipolar,anxiety,djd,hypertension ,hx melanoma,hyperlipid,hypothyroid GERD Past Surgical History rt ovarian tube removed,partial thyroidectomy left TKR bx tongue Reported Medications Floxin Otic (Ofloxacin Otic) 0.3 % Jing 4 Drop EACH EAR BID Lisinopril 10 Mg Tab 10 Mg PO DAILY Klonopin (Clonazepam) 0.5 Mg Tab 1 Mg PO HS Clonazepam 0.5 Mg Tab 0.5 Mg PO DAILY IN THE AM Vitamin D-1000 (Cholecalciferol) 1,000 Unit Tab 2,000 Units PO DAILY Multi-Vitamin Daily (Multiple Vitamin) 1 Tab Tab 1 Tab PO DAILY Melatonin 10 Mg-1 Mg Tab 10 Mg PO HS PRN Lisinopril 10 Mg Tab 10 Mg PO DAILY Geodon (Ziprasidone) 40 Mg Cap 40 Mg PO HS Synthroid (Levothyroxine Sodium) 25 Mcg Tab 25 Mcg PO DAILY Potassium Chloride ER (Potassium Chloride) 10 Meq Cap 10 Meq PO DAILY Prevacid (Lansoprazole) 30 Mg Capdr 30 Mg PO BID Lamotrigine 100 Mg Tab 200 Mg PO HS Cetirizine (Cetirizine HCl) 10 Mg Tab 10 Mg PO DAILY Allergies: Coded Allergies: azithromycin (Verified Allergy, Severe, very sick, 11/04/17) Sulfa (Sulfonamide Antibiotics) (Verified Allergy, Intermediate, Nausea/ Vomiting, 11/04/17) diatrizoate meglumine (Verified Allergy, Mild, HIVES, 11/04/17) gadobenic acid (Verified Allergy, Mild, HIVES, 11/04/17) gadodiamide (Verified Allergy, Mild, HIVES, 11/04/17) gadoteridol (Verified Allergy, Mild, HIVES, 11/04/17) iodine (Verified Allergy, Mild, HIVES AND NAUSEA, 11/04/17) iodixanol (Verified Allergy, Mild, HIVES, 11/04/17) iohexol (Verified Allergy, Mild, HIVES, 11/04/17) penicillin G (Verified Allergy, Mild, HIVES, 11/04/17) potassium iodide (Verified Allergy, Mild, HIVES AND NAUSEA, 11/04/17) povidone-iodine (Verified Allergy, Mild, HIVES AND NAUSEA, 11/04/17) sodium iodide (Verified Allergy, Mild, HIVES AND NAUSEA, 11/04/17) sodium iodide (Verified Allergy, Mild, HIVES AND NAUSEA, 11/04/17) aspirin (Verified Adverse Reaction, Severe, PT HAS ULCER, 11/04/17) erythromycin base (Verified Adverse Reaction, Severe, TOO TIRED TO GET OUT OF BED, 11/04/17) Uncoded Allergies: PREDNISONE/CORTISONE (Allergy, Severe, 05/28/11) Social History occ etoh non smoker Physical Exam Vital Signs Vital Signs Date Time Temp Pulse Resp B/P (MAP) Pulse Ox O2 Delivery O2 Flow Rate FiO2 11/04/17 20:22 72 20 171/81 (111) 74 145/82 (103) 72 170/85 (113) 11/04/17 17:13 25 97 Room Air 11/04/17 15:49 96.5 82 16 179/84 (115) 95 Physical Exam GENERAL: This is a well-nourished, well-developed patient, in no apparent distress. SKIN: No rashes, ecchymoses or lesions. Cool and dry. HEAD: Atraumatic. Normocephalic. No temporal or scalp tenderness. EYES: Pupils equal round and reactive. Extraocular motions intact. No scleral icterus. No injection or drainage. ENT: Nose without bleeding, purulent drainage or septal hematoma. Throat without erythema, tonsillar hypertrophy or exudate. Uvula midline. Airway patent. NECK: Trachea midline. No JVD or lymphadenopathy. Supple, nontender, no meningeal signs. CARDIOVASCULAR: Regular rate and rhythm without murmurs, gallops, or rubs. RESPIRATORY: Clear to auscultation. Breath sounds equal bilaterally. No wheezes , rales, or rhonchi. GASTROINTESTINAL: Abdomen soft, non-tender, nondistended. No hepato-splenomegaly , or palpable masses. No guarding. MUSCULOSKELETAL: Extremities without clubbing, cyanosis, or edema. No joint tenderness, effusion, or edema noted. No calf tenderness. Negative Homans sign bilaterally.Arthritc deformities NEUROLOGICAL: Awake and alert. Cranial nerves II through XII intact. Motor and sensory grossly within normal limits. Five out of 5 muscle strength in all muscle groups. Normal speech. Laboratory Laboratory Tests Test 11/04/17 17:05 11/04/17 17:30 White Blood Count 8.8 Red Blood Count 5.08 Hemoglobin 14.5 Hematocrit 43.5 Mean Corpuscular Volume 85.5 Mean Corpuscular Hemoglobin 28.6 Mean Corpuscular Hemoglobin Concent 33.5 Red Cell Distribution Width 13.0 Platelet Count 376 Mean Platelet Volume 6.8 Neutrophils (%) (Auto) 82.5 Lymphocytes (%) (Auto) 10.9 Monocytes (%) (Auto) 6.1 Eosinophils (%) (Auto) 0.1 Basophils (%) (Auto) 0.4 Neutrophils # (Auto) 7.2 Lymphocytes # (Auto) 1.0 Monocytes # (Auto) 0.5 Eosinophils # (Auto) 0.0 Basophils # (Auto) 0.0 CBC Comment DIFF FINAL Differential Comment Prothrombin Time 9.9 Prothromb Time International Ratio 1.0 Activated Partial Thromboplast Time 26.7 Blood Urea Nitrogen 15 Creatinine 0.78 Random Glucose 95 Total Protein 7.7 Albumin 4.3 Calcium Level 9.2 Phosphorus Level 3.8 Magnesium Level 2.4 Alkaline Phosphatase 68 Aspartate Amino Transf (AST/SGOT) 25 Alanine Aminotransferase (ALT/SGPT) 29 Total Bilirubin 0.2 Sodium Level 129 Potassium Level 4.7 Chloride Level 92 Carbon Dioxide Level 27.0 Anion Gap 10 Estimat Glomerular Filtration Rate 72 Lactic Acid Level 0.9 Total Creatine Kinase 156 Creatine Kinase MB 6.6 Troponin I LESS THAN 0.02 Lipase 141 Urine Color YELLOW Urine Turbidity CLEAR Urine pH 6.0 Urine Specific [place] 1.012 Urine Protein NEG Urine Glucose (UA) NEG Urine Ketones NEG Urine Occult Blood NEG Urine Nitrite NEG Urine Bilirubin NEG Urine Urobilinogen LESS THAN 2.0 Urine Leukocyte Esterase MOD Urine WBC 4 Urine Squamous Epithelial Cells 1 Microscopic Urinalysis Comment CATH-CULT NOT IND Date/Time Source Procedure Growth Status 11/04/17 17:05 Blood Peripheral Aerobic Blood Culture Pending Received 11/04/17 17:05 Blood Peripheral Anaerobic Blood Culture Pending Received Result Diagram: 11/04/17 1705 11/04/17 1705 Imaging Last [address] 11/04/17 1627 Signed Impressions: CONCLUSION: 1. No acute intracranial abnormalities. No significant change from September 2017. Chest X-Ray 11/04/17 1621 Signed Impressions: CONCLUSION: Negative examination. Course in er received IV fluid which did improve blood pressure Caprini VTE Risk Assessment Caprini VTE Risk Assessment: Mod/High Risk (score >= 2) Caprini Risk Assessment Model Point Value = 1 Point Value = 2 Point Value = 3 Point Value = 5 Age 41-60 Minor surgery BMI > 25 kg/m2 Swollen legs Varicose veins or History of unexplained or recurrent spontaneous Oral contraceptives or hormone replacement Sepsis (< 1 month) Serious lung disease, including pneumonia (< 1 month) Abnormal pulmonary function Acute myocardial infarction Congestive heart failure (< 1 month) History of inflammatory bowel disease Medical patient at bed rest Age 61-74 Arthroscopic surgery Major open surgery (> 45 min) Laparoscopic surgery (> 45 min) Malignancy Confined to bed (> 72 hours) Immobilizing plaster cast Central venous access Age >= 75 History of VTE Family history of VTE Factor V Leiden Prothrombin [id number] Lupus anticoagulant Anticardiolipin antibodies Elevated serum homocysteine Heparin-induced thrombocytopenia Other congenital or acquired thrombophilia Stroke (< 1 month) Elective arthroplasty Hip, pelvis, or leg fracture Acute spinal cord injury (< 1 month) Prophylaxis Regimen Total Risk Factor Score Risk Level Prophylaxis Regimen 0-1 Low Early ambulation 2 Moderate Order ONE of the following: *Sequential Compression Device (SCD) *Heparin 5000 units SQ BID 3-4 Higher Order ONE of the following medications: *Heparin 5000 units SQ TID *Enoxaparin/Lovenox 40 mg SQ daily (WT < 150 kg, CrCl > 30 mL/min) *Enoxaparin/Lovenox 30 mg SQ daily (WT < 150 kg, CrCl > 10-29 mL/min) *Enoxaparin/Lovenox 30 mg SQ BID (WT < 150 kg, CrCl > 30 mL/min) AND/OR *Sequential Compression Device (SCD) 5 or more Highest Order ONE of the following medications: *Heparin 5000 units SQ TID (Preferred with Epidurals) *Enoxaparin/Lovenox 40 mg SQ daily (WT < 150 kg, CrCl > 30 mL/min) *Enoxaparin/Lovenox 30 mg SQ daily (WT < 150 kg, CrCl > 10-29 mL/min) *Enoxaparin/Lovenox 30 mg SQ BID (WT < 150 kg, CrCl > 30 mL/min) AND *Sequential Compression Device (SCD) Assessment and Plan Problem List: (1) Orthostatic dizziness ICD Codes: R42 - Dizziness and giddiness Status: Acute Plan: improved with hydration will monitor (2) Weakness generalized ICD Codes: R53.1 - Weakness Status: Chronic Plan: symptoms more chronic may need rehab (3) Right otitis externa ICD Codes: H60.91 - Unspecified otitis externa, right ear Status: Chronic Plan: continue current ear drop antibiotics (4) Bipolar 1 disorder ICD Codes: F31.9 - Bipolar disorder, unspecified Status: Chronic Plan: continue current medications Assessment and Plan will get case management and PT to evaluate patient lives alone Code Status full Discussed Condition With patient Problem Qualifiers (1) Right otitis externa: Qualified Codes: H60.91 - Unspecified otitis externa, right ear Alejandro Forte MD November 04, 2017 21:50
[2017-11-04] MEDS ORDERED: ZIPRASIDONE HCL 40 MG CAP PO SCH (23:30)
[2017-11-04] MEDS ORDERED: clonazePAM 1 MG TAB PO SCH (23:30)
[2017-11-04] MEDS ORDERED: lamoTRIgine 100 MG TAB PO ONE (23:30)
[2017-11-04] MEDS ORDERED: ZIPRASIDONE HCL 40 MG CAP PO ONE (23:30)
[2017-11-04] MEDS ORDERED: clonazePAM 1 MG TAB PO ONE (23:30)
[2017-11-05 03:57] VITALS: BP 137/67; PULSE 69; RESP 18; O2SAT 98
[2017-11-05] MEDS: LEVOTHYROXINE SODIUM 25 MCG TAB PO SCH (06:55)
[2017-11-05 08:30] VITALS: BP 169/75; PULSE 80; RESP 18; O2SAT 99
[2017-11-05] MEDS ORDERED: OFLOXACIN EACH EAR SCH (09:00)
[2017-11-05] MEDS ORDERED: NON-FORMULARY DRUG (Lansoprazole (Prevacid) 30 MG) PO SCH (09:00)
[2017-11-05] MEDS ORDERED: NON-FORMULARY DRUG (Multiple Vitamin (Multi-Vitamin Daily) 1 TAB) PO SCH (09:00)
[2017-11-05] MEDS: clonazePAM 0.5 MG TAB PO SCH (09:46)
[2017-11-05] MEDS: PANTOPRAZOLE SOD 40 MG DELAYED RELEASE TAB PO SCH ×2 (09:47→20:24)
[2017-11-05] MEDS: LISINOPRIL 10 MG TAB PO SCH (09:47)
[2017-11-05] MEDS: CHOLECALCIFEROL (VIT D3) 1000 UNIT TAB PO SCH (09:47)
[2017-11-05] MEDS: CETIRIZINE HCL 10 MG TAB PO SCH (09:47)
[2017-11-05] MEDS: MULTIVITAMIN TAB PO SCH (09:47)
[2017-11-05] MEDS: SODIUM CHLORIDE 0.9% FLUSH 10 ML FLUSH IV FLUSH SCH ×2 (10:40→21:00)
[2017-11-05] MEDS: OFLOXACIN 0.3% OPTH SOLN 5 ML BTL EACH EAR SCH ×2 (10:40→20:39)
[2017-11-05] MEDS: DOCUSATE SODIUM 50 MG/SENNA 8.6 MG TAB PO SCH ×2 (10:41→20:24)
[2017-11-05] MEDS: POTASSIUM CHLORIDE 10 MEQ CAP PO SCH (10:41)
[2017-11-05 11:07] LABS: BICARBONATE 29.8 MEQ/L (21.0-32.0); CALCIUM 8.9 MG/DL (8.5-10.1); CREATININE 0.83 MG/DL (0.50-1.00)
[2017-11-05 13:10] VITALS: BP 162/90
[2017-11-05 13:26] VITALS: BP 147/72; PULSE 69; RESP 16; TEMP 98.2; O2SAT 96
[2017-11-05] MEDS ORDERED: NAPHSOL EACH EYE (14:21)
[2017-11-05] MEDS: ACETAMINOPHEN 325 MG TAB PO PRN (14:24)
--- NOTE | 2017-11-05 15:08 | EKG ---
Date Performed: 11/04/2017 Time Performed: 16:39:05 PTAGE: 77 years EKG: Sinus rhythm NORMAL ECG Since PREVIOUS TRACING , no significant change noted PREVIOUS TRACIN10/09/2017 14.02 DOCTOR: Rohan Zamorano Interpretating Date/Time 11/05/2017 15:06:20
--- NOTE | 2017-11-05 16:32 | HHI.PR ---
Subjective Remarks This is a thin appears 77 year old female patient who presented to the ER with c /o generalized weakness. Patient found to have hyponatremia on admission Na 129. Patient also has recurrent otitis externa being followed by ENT on ciprofloxacin drops. Patient has a smoking history from age 13 to age 26 smoked 1 PPD. Patient also endorses weight loss does not known the amount. Patient offers no new concerns at this time. Objective Vitals Vital Signs Date Time Temp Pulse Resp B/P (MAP) Pulse Ox O2 Delivery O2 Flow Rate FiO2 11/05/17 13:26 98.2 69 16 147/72 (97) 96 11/05/17 13:10 88 18 162/90 (114) 98 11/05/17 08:30 80 18 169/75 (106) 99 Room Air 11/05/17 03:57 69 18 137/67 (90) 98 Room Air 11/04/17 21:50 71 16 170/81 (110) 98 Room Air 11/04/17 20:22 72 20 171/81 (111) 74 145/82 (103) 72 170/85 (113) 11/04/17 17:13 25 97 Room Air Result Diagram: 11/04/17 1705 11/05/17 1018 Other Results Laboratory Tests Test 11/04/17 17:05 11/04/17 17:30 11/05/17 10:18 White Blood Count 8.8 TH/MM3 Red Blood Count 5.08 MIL/MM3 Hemoglobin 14.5 GM/DL Hematocrit 43.5 % Mean Corpuscular Volume 85.5 FL Mean Corpuscular Hemoglobin 28.6 PG Mean Corpuscular Hemoglobin Concent 33.5 % Red Cell Distribution Width 13.0 % Platelet Count 376 TH/MM3 Mean Platelet Volume 6.8 FL Neutrophils (%) (Auto) 82.5 % Lymphocytes (%) (Auto) 10.9 % Monocytes (%) (Auto) 6.1 % Eosinophils (%) (Auto) 0.1 % Basophils (%) (Auto) 0.4 % Neutrophils # (Auto) 7.2 TH/MM3 Lymphocytes # (Auto) 1.0 TH/MM3 Monocytes # (Auto) 0.5 TH/MM3 Eosinophils # (Auto) 0.0 TH/MM3 Basophils # (Auto) 0.0 TH/MM3 CBC Comment DIFF FINAL Differential Comment Prothrombin Time 9.9 SEC Prothromb Time International Ratio 1.0 RATIO Activated Partial Thromboplast Time 26.7 SEC Blood Urea Nitrogen 15 MG/DL 7 MG/DL Creatinine 0.78 MG/DL 0.83 MG/DL Random Glucose 95 MG/DL 127 MG/DL Total Protein 7.7 GM/DL Albumin 4.3 GM/DL Calcium Level 9.2 MG/DL 8.9 MG/DL Phosphorus Level 3.8 MG/DL Magnesium Level 2.4 MG/DL Alkaline Phosphatase 68 U/L Aspartate Amino Transf (AST/SGOT) 25 U/L Alanine Aminotransferase (ALT/SGPT) 29 U/L Total Bilirubin 0.2 MG/DL Sodium Level 129 MEQ/L 131 MEQ/L Potassium Level 4.7 MEQ/L 4.0 MEQ/L Chloride Level 92 MEQ/L 92 MEQ/L Carbon Dioxide Level 27.0 MEQ/L 29.8 MEQ/L Anion Gap 10 MEQ/L 9 MEQ/L Estimat Glomerular Filtration Rate 72 ML/MIN 67 ML/MIN Lactic Acid Level 0.9 mmol/L Total Creatine Kinase 156 U/L Creatine Kinase MB 6.6 NG/ML Troponin I LESS THAN 0.02 NG/ML Lipase 141 U/L Urine Color YELLOW Urine Turbidity CLEAR Urine pH 6.0 Urine Specific [place] 1.012 Urine Protein NEG mg/dL Urine Glucose (UA) NEG mg/dL Urine Ketones NEG mg/dL Urine Occult Blood NEG Urine Nitrite NEG Urine Bilirubin NEG Urine Urobilinogen LESS THAN 2.0 MG/DL Urine Leukocyte Esterase MOD Urine WBC 4 /hpf Urine Squamous Epithelial Cells 1 /hpf Microscopic Urinalysis Comment CATH-CULT NOT IND Serum Osmolality 277 MOSM/KG Imaging Last [address] 11/04/171626 Signed Impressions: CONCLUSION: 1. No acute intracranial abnormalities. No significant change from September 2017. Chest X-Ray 11/04/17 1621 Signed Impressions: CONCLUSION: Negative examination. Objective Remarks GENERAL: This is athin well-developed patient, in no apparent distress. CARDIOVASCULAR: Regular rate and rhythm RESPIRATORY: Clear to auscultation. Breath sounds equal bilaterally. GASTROINTESTINAL: Abdomen soft, non-tender, nondistended. Normal active bowel sounds MUSCULOSKELETAL: Extremities without clubbing, cyanosis, or edema. NEURO: Alert & Oriented x4 to person, place, time, situation. Moves all ext x4 A/P Problem List: (1) Hyponatremia ICD Codes: E87.1 - Hypo-osmolality and hyponatremia Plan: This is a thin appears 77 year old female patient who presented to the ER with c/o generalized weakness. Patient found to have hyponatremia on admission Na 129. Patient also has recurrent otitis externa being followed by ENT on ciprofloxacin drops. Patient has a smoking history from age 13 to age 26 smoked 1 PPD. Patient also endorses weight loss does not known the amount. - Na on admission 129 -> 131(11/05) - IVF for hydration - CT chest/thorax and CT abd/pelvis due to concern for Ca. Would like to do these studies with contrast, but patient has an allergy. Offered to premedicate patient and patient continues to refuse contrast. - Dr. Woo discussed case with Patient and Patient's daughter (Aisha) over the phone DVT porphlayxsis with SCDs (2) Orthostatic dizziness ICD Codes: R42 - Dizziness and giddiness Status: Acute Plan: improved with hydration will monitor (3) Weakness generalized ICD Codes: R53.1 - Weakness Status: Chronic Plan: - PT consulted recommending rehab (4) Right otitis externa ICD Codes: H60.91 - Unspecified otitis externa, right ear Status: Chronic Plan: continue current ear drop antibiotics (5) Bipolar 1 disorder ICD Codes: F31.9 - Bipolar disorder, unspecified Status: Chronic Plan: continue current medications Assessment and Plan Patient examined. Assessment and plan formulated with Marjan Jordan PA-C. I agree with the above. Problem Qualifiers (1) Right otitis externa: Qualified Codes: H60.91 - Unspecified otitis externa, right ear Marjan Jordan November 05, 2017 16:32 Jeff Woo DO November 06, 2017 23:43
[2017-11-05 16:59] LABS: SODIUM,RANDOM URINE 75 MEQ/L
[2017-11-05 17:27] LABS: OSMOLALITY,URINE 459 MOSM/KG (300-1300)
[2017-11-05 17:34] LABS: FREE T4 1.11 NG/DL (0.76-1.46)
--- NOTE | 2017-11-05 18:26 | RADRPT ---
EXAM DATE: 11/05/2017 6:09 PM EDT AGE/SEX: 77 years / Female INDICATIONS: Hyponatremia and weight loss. CLINICAL DATA: This is the patient's initial encounter. Patient reports that signs and symptoms have been present for 1 day and indicates a pain score of 0/10. MEDICAL/SURGICAL HISTORY: Cardiovascular disease. Hypertension. Gastroesophageal reflux disease. TB None. RADIATION DOSE: 4.79 CTDI (mGy) ; Combined studies COMPARISON: None . TECHNIQUE: Multiple contiguous axial images were obtained through the chest without contrast. Image s were obtained in suspended respiration using multiple row detector helical technique. Using automa danni exposure control and adjustment of the mA and/or kV according to patient size, radiation dose was kept as low as reasonably achievable to obtain optimal diagnostic quality images. FINDINGS: Lungs: The lungs are symmetrically aerated. No infiltrates or nodular densities are seen. Mediastinum: There is good visualization of the great vessels of the middle mediastinum. No evidenc e of mediastinal or hilar adenopathy/mass. Pleurae: No evidence of focal thickening or pleural effusion. Axillae: There is a bilobed fat-containing mass involving the left axilla. This measures 3.2 x 2.6 x 1.7 cm. It is predominantly fat density with a tiny focus of calcification anteriorly. There is a mi ldly thick rind of soft tissue surrounding the lesion. It abuts the subscapularis muscle along its an terior margin and abuts the lateral chest wall. No adenopathy.. Bony Structures: Unremarkable. Miscellaneous: See the CT of the abdomen and pelvis reported separately.. CONCLUSION: 1. No acute intrathoracic abnormality. 2. Lipoma involving the left axilla measuring 3.2 x 2.6 x 1.7 cm. Electronically signed by: Supa Saldana MD 11/05/2017 6:25 PM EDT
--- NOTE | 2017-11-05 18:32 | RADRPT ---
EXAM DATE: 11/05/2017 6:26 PM EDT AGE/SEX: 77 years / Female INDICATIONS: Hyponatremia and weight loss. CLINICAL DATA: This is the patient's initial encounter. Patient reports that signs and symptoms have been present for 1 day and indicates a pain score of 0/10. MEDICAL/SURGICAL HISTORY: Cardiovascular disease. Hypertension. Gastroesophageal reflux disea se. TB . RADIATION DOSE: 4.84 CTDI (mGy) ; Combined studies COMPARISON: No prior [facility] exams available for comparison. TECHNIQUE: Multiple contiguous axial images were obtained through the abdomen. Images were obtained using multiple row detector helical technique. Using dose reduction techniques, radiation dose was ke pt as low as reasonably achievable to obtain optimal diagnostic quality images. FINDINGS: Lower Lungs: The visualized lower lungs are clear. Liver: The liver has a homogeneous density without space-occupying lesion. There is no dilation of th e biliary tree. Spleen: Homogeneous density without enlargement. Pancreas: Unremarkable without mass or calcification. Kidneys: Normal in size and shape. No evidence of mass or hydronephrosis. Adrenal Glands: Unremarkable. Aorta: The aorta and proximal iliac vessels are grossly unremarkable without aneurysmal dilation. Bowel/Mesentery: The bowel loops are grossly unremarkable. The cecum and sigmoid colon have a normal configuration. Abdominal Wall: Intact. Retroperitoneum: No evidence of adenopathy in the retrocrural, para-aortic, or deep pelvic regions. Bladder: Contours are smooth. Reproductive Organs: No abnormal masses or calcifications seen. Inguinal: The inguinal region is unremarkable without evidence of adenopathy. Bony Structures: Facet arthropathy is identified in the lumbar spine. CONCLUSION: 1. No evidence of acute process, suspicious mass or lymphadenopathy 2. Facet arthropathy Electronically signed by: Jose R Aleman MD 11/05/2017 6:30 PM EDT
[2017-11-05 19:02] VITALS: BP 147/65; PULSE 60; RESP 16; TEMP 98.4; O2SAT 99
[2017-11-05] MEDS: clonazePAM 1 MG TAB PO SCH (20:24)
[2017-11-05] MEDS: ZIPRASIDONE HCL 40 MG CAP PO SCH (20:24)
[2017-11-05] MEDS: MELATONIN 5 MG TAB PO PRN (20:24)
[2017-11-05] MEDS: lamoTRIgine 100 MG TAB PO SCH (21:59)
[2017-11-05 23:33] VITALS: BP 151/72; PULSE 62; RESP 16; TEMP 98.2; O2SAT 98
[2017-11-06 03:12] VITALS: BP 118/55; PULSE 60; RESP 16; TEMP 98; O2SAT 97
[2017-11-06] MEDS: LEVOTHYROXINE SODIUM 25 MCG TAB PO SCH (05:26)
[2017-11-06 07:51] VITALS: BP 123/59; PULSE 61; RESP 16; TEMP 97.5; O2SAT 98
[2017-11-06] MEDS: OFLOXACIN 0.3% OPTH SOLN 5 ML BTL EACH EAR SCH ×2 (08:52→21:00)
[2017-11-06] MEDS: SODIUM CHLORIDE 0.9% FLUSH 10 ML FLUSH IV FLUSH SCH ×2 (08:54→21:00)
[2017-11-06] MEDS: POTASSIUM CHLORIDE 10 MEQ CAP PO SCH (08:56)
[2017-11-06] MEDS: DOCUSATE SODIUM 50 MG/SENNA 8.6 MG TAB PO SCH ×2 (08:56→21:34)
[2017-11-06] MEDS: LISINOPRIL 10 MG TAB PO SCH (08:56)
[2017-11-06] MEDS: CETIRIZINE HCL 10 MG TAB PO SCH (08:56)
[2017-11-06] MEDS: MULTIVITAMIN TAB PO SCH (08:56)
[2017-11-06] MEDS: PANTOPRAZOLE SOD 40 MG DELAYED RELEASE TAB PO SCH ×2 (08:57→21:35)
[2017-11-06] MEDS: clonazePAM 0.5 MG TAB PO SCH (08:57)
[2017-11-06] MEDS: CHOLECALCIFEROL (VIT D3) 1000 UNIT TAB PO SCH (08:57)
[2017-11-06] MEDS: ACETAMINOPHEN 325 MG TAB PO PRN ×2 (08:58→21:35)
[2017-11-06] MEDS ORDERED: PNEUMOCOCCAL POLYVALENT INJ 25 MCG/0.5 ML SYR IM ONE (10:00)
--- NOTE | 2017-11-06 10:48 | HHI.DCPOC ---
Discharge Care Plan Diagnosis: (1) Otitis externa (2) Weakness generalized (3) Bipolar 1 disorder (4) Hyponatremia Goals to Promote Your Health * To prevent worsening of your condition and complications * To maintain your health at the optimal level Directions to Meet Your Goals Take your medications as prescribed Follow your dietary instruction Follow activity as directed Keep your appointments as scheduled Take your immunizations and boosters as scheduled If your symptoms worsen call your PCP, if no PCP go to Urgent Care Center or Emergency Room Smoking is Dangerous to Your Health. Avoid second hand smoke Call the 24-hour hour crisis hotline for domestic abuse at Marjan Jordan November 06, 2017 10:48 Jeff Woo DO November 08, 2017 15:33
--- NOTE | 2017-11-06 10:55 | HHI.DS ---
Discharge Summary Admission Date November 04, 2017 at 21:03 Discharge Date: November 07, 2017 Admitting Diagnosis Orthostatic Hypotention/Weakness/Chronic Hyponatremia (1) Hyponatremia Diagnosis: Principal ICD Codes: E87.1 - Hypo-osmolality and hyponatremia (2) Orthostatic dizziness Diagnosis: Principal ICD Codes: R42 - Dizziness and giddiness Status: Acute (3) Weakness generalized Diagnosis: Principal ICD Codes: R53.1 - Weakness Status: Chronic (4) Right otitis externa Diagnosis: Secondary ICD Codes: H60.91 - Unspecified otitis externa, right ear Status: Chronic (5) Bipolar 1 disorder Diagnosis: Secondary ICD Codes: F31.9 - Bipolar disorder, unspecified Status: Chronic Consultants none Procedures none Brief History 77-year-old female coming in from her home where she lives by herself , with complaints of generalized weakness, shaking, and headache. Patient has history of recent otitis externa followed by her ear nose and throat physician currently being treated with Ciprodex drops to the right ear. Patient denies fever or chills, but is very vague in her symptoms. She states she does have a headache which she describes as about a 7-8 out of 10. She is mildly nauseous but denies vomiting or diarrhea. She denies abdominal pain or changes in her urine. Patient is a poor historian. Patient has multiple allergies including prednisone, sulfa, aspirin, azithromycin, erythromycin, penicillin, CT dye. In er was found to be mildly orthostatic and has rt ear otitis which is contributing to symptoms . Patient lives alone and may need in patient rehab, admit to observation. CBC/BMP: 11/04/17 1705 11/05/17 1018 Significant Findings Laboratory Tests Test 11/04/17 17:05 11/04/17 17:30 11/05/17 10:18 11/05/17 16:40 Mean Platelet Volume 6.8 FL (7.0-11.0) Neutrophils (%) (Auto) 82.5 % (16.0-70.0) Sodium Level 129 MEQ/L (136-145) 131 MEQ/L (136-145) Chloride Level 92 MEQ/L (98-107) 92 MEQ/L (98-107) Estimat Glomerular Filtration Rate 72 ML/MIN (>89) 67 ML/MIN (>89) Creatine Kinase MB 6.6 NG/ML (0.5-3.6) Troponin I LESS THAN 0.02 NG/ML Urine Leukocyte Esterase MOD (NEG) Random Glucose 127 MG/DL (74-106) Imaging Last Impressions Cervical Spine X-Ray 11/06/17 0000 Signed Impressions: CONCLUSION: 1. Degenerative disc disease and facet arthropathy 2. Mild degenerative listhesis at C5-6 3. No acute abnormality noted. Abdomen/Pelvis CT 11/05/17 1632 Signed Impressions: CONCLUSION: 1. No evidence of acute process, suspicious mass or lymphadenopathy 2. Facet arthropathy Chest CT 11/05/17 0000 Signed Impressions: CONCLUSION: 1. No acute intrathoracic abnormality. 2. Lipoma involving the left axilla measuring 3.2 x 2.6 x 1.[address] 11/04/17 1627 Signed Impressions: CONCLUSION: 1. No acute intracranial abnormalities. No significant change from September 2017. Chest X-Ray 11/04/17 1621 Signed Impressions: CONCLUSION: Negative examination. Last Impressions Abdomen/Pelvis CT 11/05/17 1632 Signed Impressions: CONCLUSION: 1. No evidence of acute process, suspicious mass or lymphadenopathy 2. Facet arthropathy Chest CT 11/05/17 0000 Signed Impressions: CONCLUSION: 1. No acute intrathoracic abnormality. 2. Lipoma involving the left axilla measuring 3.2 x 2.6 x [address] 11/04/17 1627 Signed Impressions: CONCLUSION: 1. No acute intracranial abnormalities. No significant change from September 2017. Chest X-Ray 11/04/17 1621 Signed Impressions: CONCLUSION: Negative examination. PE at Discharge GENERAL: This is athin well-developed patient, in no apparent distress. CARDIOVASCULAR: Regular rate and rhythm RESPIRATORY: Clear to auscultation. Breath sounds equal bilaterally. GASTROINTESTINAL: Abdomen soft, non-tender, nondistended. Normal active bowel sounds MUSCULOSKELETAL: Extremities without clubbing, cyanosis, or edema. NEURO: Alert & Oriented x4 to person, place, time, situation. Moves all ext x4 Hospital Course Chronic Hyponatremia This is a thin appears 77 year old female patient who presented to the ER with c /o generalized weakness. Patient found to have hyponatremia on admission Na 129. Patient also has recurrent otitis externa being followed by ENT on ciprofloxacin drops. Patient has a smoking history from age 13 to age 26 smoked 1 PPD. Patient also endorses weight loss does not known the amount. - Na on admission 129 -> 131(11/05) - Encourage PO intake add nutritional supplement ensure/boost to meals - IVF for hydration - CXR negative exam - CT chest reviewed No acute intrathoracic abnormality. Lipoma involving the left axilla measuring 3.2 x 2.6 x 1.7 cm - CT abd/pelvis reviewed No evidence of acute process, suspicious mass or lymphadenopathy. Facet arthropathy - Would like to do these studies with contrast, but patient has an allergy. Offered to premedicate patient and patient continues to refuse contrast. - Dr. Woo discussed case with Patient and Patient's daughter (Aisha) over the phone DVT porphlayxsis with SCDs Orthostatic dizziness - improved with hydration will monitor - CT head reviewed No acute intracranial abnormalities. No significant change from September 2017 Weakness generalized - PT consulted recommending rehab Neck pain likely due to arthritis -Cervical spine x-ray reviewed and reveals degenerative disc disease and facet arthropathy. Mild degenerative listhesis at C5-6. No acute abnormality is noted Right otitis externa continue current ear drop antibiotics Bipolar 1 disorder continue current medications DVT prophylaxis with SCDs Pt Condition on Discharge: Stable Discharge Disposition: Discharge to SNF Discharge Instructions DIET: Follow Instructions for: As Tolerated, No Restrictions Activities you can perform: Regular-No Restrictions Follow up Referrals: PCP Follow-up - [address] Espinosa Continued Medications: Cetirizine (Cetirizine) 10 Mg Tab 10 MG PO DAILY for Allergies, TAB 0 Refills Cholecalciferol (Vitamin D-1000) 1,000 Unit Tab 2000 UNITS PO DAILY for Nutritional Supplement, #1 BOTTLE 0 Refills Clonazepam (Clonazepam) 0.5 Mg Tab 0.5 MG PO DAILY IN THE AM, #60 TAB 0 Refills Clonazepam (Klonopin) 0.5 Mg Tab 1 MG PO HS, #60 TAB 0 Refills Lamotrigine (Lamotrigine) 100 Mg Tab 200 MG PO HS for Control Seizures, #30 TAB 0 Refills Lansoprazole (Prevacid) 30 Mg Capdr 30 MG PO BID, CAP 0 Refills Levothyroxine (Synthroid) 25 Mcg Tab 25 MCG PO DAILY for Thyroid, #30 TAB 0 Refills Lisinopril (Lisinopril) 10 Mg Tab 10 MG PO DAILY, #30 TAB 0 Refills Melatonin (Melatonin) 10 Mg-1 Mg Tab 10 MG PO HS PRN for SLEEP, TAB 0 Refills Multiple Vitamin (Multi-Vitamin Daily) 1 Tab Tab 1 TAB PO DAILY for Nutritional Supplement, TAB 0 Refills Naphazoline-Pheniramine Opth Drops (Naphcon-A Opth Drops) 0.025-0.3 % Soln 1 DROP EACH EYE TID, #1 BOTTLE 0 Refills Ofloxacin Otic (Floxin Otic) 0.3 % Jing 4 DROP EACH EAR BID for Infection, #1 BOTTLE 0 Refills Potassium Chloride ER (Potassium Chloride ER) 10 Meq Cap 10 MEQ PO DAILY for Electrolyte Replacement, #30 CAP 0 Refills Ziprasidone (Geodon) 40 Mg Cap 40 MG PO HS, #60 CAP 0 Refills Additional Information Patient examined. Assessment and plan formulated with Marjan Jordan PA-C. I agree with the above. Marjan Jordan November 06, 2017 10:55 Jeff Woo DO November 08, 2017 15:34
[2017-11-06 11:36] VITALS: BP_SYST 100; BP_SYST 113; BP_SYST 114; BP_DIAS 55; BP_DIAS 57; BP_DIAS 61; PULSE 65; RESP 16; TEMP 98; O2SAT 98
[2017-11-06 13:14] LABS: BICARBONATE 29.6 MEQ/L (21.0-32.0); CALCIUM 8.6 MG/DL (8.5-10.1); CREATININE 0.73 MG/DL (0.50-1.00)
[2017-11-06] MEDS: NAPHAZOLINE EACH EYE SCH ×2 (13:46→19:28)
[2017-11-06] MEDS: PHENIRAMINE EACH EYE SCH ×2 (13:46→19:28)
--- NOTE | 2017-11-06 18:34 | HHI.PR ---
Subjective Remarks Patient offers no new concerns/complaints Objective Vitals Vital Signs Date Time Temp Pulse Resp B/P (MAP) Pulse Ox O2 Delivery O2 Flow Rate FiO2 11/06/17 11:36 98.0 65 16 100/55 (70) 98 114/61 (78) 113/57 (75) 11/06/17 07:51 97.5 61 16 123/59 (80) 98 11/06/17 03:12 98.0 60 16 118/55 (76) 97 11/05/17 23:33 98.2 62 16 151/72 (98) 98 11/05/17 19:02 98.4 60 16 147/65 (92) 99 11/06/17 11/06/17 11/07/17 15:00 23:00 07:00 Intake Total 100 ml Balance 100 ml Intake Oral 100 ml Result Diagram: 11/04/17 1705 11/06/17 1225 Other Results Laboratory Tests Test 11/04/17 17:05 11/04/17 17:30 11/05/17 10:18 11/05/17 16:40 White Blood Count 8.8 TH/MM3 Red Blood Count 5.08 MIL/MM3 Hemoglobin 14.5 GM/DL Hematocrit 43.5 % Mean Corpuscular Volume 85.5 FL Mean Corpuscular Hemoglobin 28.6 PG Mean Corpuscular Hemoglobin Concent 33.5 % Red Cell Distribution Width 13.0 % Platelet Count 376 TH/MM3 Mean Platelet Volume 6.8 FL Neutrophils (%) (Auto) 82.5 % Lymphocytes (%) (Auto) 10.9 % Monocytes (%) (Auto) 6.1 % Eosinophils (%) (Auto) 0.1 % Basophils (%) (Auto) 0.4 % Neutrophils # (Auto) 7.2 TH/MM3 Lymphocytes # (Auto) 1.0 TH/MM3 Monocytes # (Auto) 0.5 TH/MM3 Eosinophils # (Auto) 0.0 TH/MM3 Basophils # (Auto) 0.0 TH/MM3 CBC Comment DIFF FINAL Differential Comment Prothrombin Time 9.9 SEC Prothromb Time International Ratio 1.0 RATIO Activated Partial Thromboplast Time 26.7 SEC Blood Urea Nitrogen 15 MG/DL 7 MG/DL Creatinine 0.78 MG/DL 0.83 MG/DL Random Glucose 95 MG/DL 127 MG/DL Total Protein 7.7 GM/DL Albumin 4.3 GM/DL Calcium Level 9.2 MG/DL 8.9 MG/DL Phosphorus Level 3.8 MG/DL Magnesium Level 2.4 MG/DL Alkaline Phosphatase 68 U/L Aspartate Amino Transf (AST/SGOT) 25 U/L Alanine Aminotransferase (ALT/SGPT) 29 U/L Total Bilirubin 0.2 MG/DL Sodium Level 129 MEQ/L 131 MEQ/L Potassium Level 4.7 MEQ/L 4.0 MEQ/L Chloride Level 92 MEQ/L 92 MEQ/L Carbon Dioxide Level 27.0 MEQ/L 29.8 MEQ/L Anion Gap 10 MEQ/L 9 MEQ/L Estimat Glomerular Filtration Rate 72 ML/MIN 67 ML/MIN Lactic Acid Level 0.9 mmol/L Total Creatine Kinase 156 U/L Creatine Kinase MB 6.6 NG/ML Troponin I LESS THAN 0.02 NG/ML Lipase 141 U/L Urine Color YELLOW Urine Turbidity CLEAR Urine pH 6.0 Urine Specific [place] 1.012 Urine Protein NEG mg/dL Urine Glucose (UA) NEG mg/dL Urine Ketones NEG mg/dL Urine Occult Blood NEG Urine Nitrite NEG Urine Bilirubin NEG Urine Urobilinogen LESS THAN 2.0 MG/DL Urine Leukocyte Esterase MOD Urine WBC 4 /hpf Urine Squamous Epithelial Cells 1 /hpf Microscopic Urinalysis Comment CATH-CULT NOT IND Serum Osmolality 277 MOSM/KG Free Thyroxine 1.11 NG/DL Thyroid Stimulating Hormone 3rd Gen 1.700 uIU/ML Urine Osmolality 459 MOSM/KG Urine Random Sodium 75 MEQ/L Urine Random Chloride 89 MEQ/L Test 11/06/17 12:25 Blood Urea Nitrogen 10 MG/DL Creatinine 0.73 MG/DL Random Glucose 86 MG/DL Calcium Level 8.6 MG/DL Sodium Level 129 MEQ/L Potassium Level 4.8 MEQ/L Chloride Level 92 MEQ/L Carbon Dioxide Level 29.6 MEQ/L Anion Gap 7 MEQ/L Estimat Glomerular Filtration Rate 78 ML/MIN Imaging Last [address] 11/04/171626 Signed Impressions: CONCLUSION: 1. No acute intracranial abnormalities. No significant change from September 2017. Chest X-Ray 11/04/171620 Signed Impressions: CONCLUSION: Negative examination. Objective Remarks GENERAL: This is athin well-developed patient, in no apparent distress. CARDIOVASCULAR: Regular rate and rhythm RESPIRATORY: Clear to auscultation. Breath sounds equal bilaterally. GASTROINTESTINAL: Abdomen soft, non-tender, nondistended. Normal active bowel sounds MUSCULOSKELETAL: Extremities without clubbing, cyanosis, or edema. NEURO: Alert & Oriented x4 to person, place, time, situation. Moves all ext x4 Procedures none A/P Problem List: (1) Hyponatremia ICD Codes: E87.1 - Hypo-osmolality and hyponatremia Plan: Chronic Hyponatremia This is a thin appears 77 year old female patient who presented to the ER with c /o generalized weakness. Patient found to have hyponatremia on admission Na 129. Patient also has recurrent otitis externa being followed by ENT on ciprofloxacin drops. Patient has a smoking history from age 13 to age 26 smoked 1 PPD. Patient also endorses weight loss does not known the amount. - Na on admission 129 -> 131(11/05) - Encourage PO intake add nutritional supplement ensure/boost to meals - IVF for hydration - CXR negative exam - CT chest reviewed No acute intrathoracic abnormality. Lipoma involving the left axilla measuring 3.2 x 2.6 x 1.7 cm - CT abd/pelvis reviewed No evidence of acute process, suspicious mass or lymphadenopathy. Facet arthropathy - Would like to do these studies with contrast, but patient has an allergy. Offered to premedicate patient and patient continues to refuse contrast. - Dr. Woo discussed case with Patient and Patient's daughter (Aisha) over the phone (11/05 and 11/06) - plan to DC patient to SNF in AM DVT porphlayxsis with SCDs (2) Orthostatic dizziness ICD Codes: R42 - Dizziness and giddiness Status: Acute Plan: improved with hydration will monitor (3) Weakness generalized ICD Codes: R53.1 - Weakness Status: Chronic Plan: - PT consulted recommending rehab (4) Right otitis externa ICD Codes: H60.91 - Unspecified otitis externa, right ear Status: Chronic Plan: continue current ear drop antibiotics (5) Bipolar 1 disorder ICD Codes: F31.9 - Bipolar disorder, unspecified Status: Chronic Plan: continue current medications Assessment and Plan Patient examined. Assessment and plan formulated with Marjan Jordan PA-C. I agree with the above. Problem Qualifiers (1) Right otitis externa: Qualified Codes: H60.91 - Unspecified otitis externa, right ear Marjan Jordan November 06, 2017 18:34 Jeff Woo DO November 08, 2017 15:33
[2017-11-06] MEDS ORDERED: MIRTA15 PO (18:38)
--- NOTE | 2017-11-06 19:45 | RADRPT ---
EXAM DATE: 11/06/2017 7:39 PM EDT AGE/SEX: 77 years / Female INDICATIONS: Pain without known trauma. CLINICAL DATA: This is the patient's initial encounter. Patient reports that signs and symptoms have been present for 2 days and indicates a pain score of 4/10. MEDICAL/SURGICAL HISTORY: None. None. COMPARISON: No prior [facility] exams available for comparison. FINDINGS: Mild retrolisthesis is noted C5 and C6. Vertebral alignment is otherwise well preserved. There are advanced degenerative disc changes with marked disc space narrowing and marginal spondylosi s at C3-4, C4-5, C5-6 and C6-7. Significant bilateral facet arthropathy is identified. There are no destructive bone changes. There are no soft tissue abnormalities. CONCLUSION: 1. Degenerative disc disease and facet arthropathy 2. Mild degenerative listhesis at C5-6 3. No acute abnormality noted. Electronically signed by: Jose R Aleman MD 11/06/2017 7:44 PM EDT
[2017-11-06 20:12] VITALS: BP 154/78; PULSE 90; RESP 16; TEMP 98; O2SAT 99
[2017-11-06] MEDS ORDERED: MIRTAZAPINE 15 MG TAB PO SCH (21:00)
[2017-11-06] MEDS: lamoTRIgine 100 MG TAB PO SCH (21:34)
[2017-11-06] MEDS: clonazePAM 1 MG TAB PO SCH (21:34)
[2017-11-06] MEDS: MELATONIN 5 MG TAB PO PRN (21:34)
[2017-11-06] MEDS: ZIPRASIDONE HCL 40 MG CAP PO SCH (21:34)
[2017-11-07 00:15] VITALS: BP 132/59; PULSE 60; RESP 16; TEMP 97.4; O2SAT 98
[2017-11-07 04:39] VITALS: BP 126/65; PULSE 68; RESP 16; TEMP 97.5; O2SAT 94
[2017-11-07] MEDS: LEVOTHYROXINE SODIUM 25 MCG TAB PO SCH (05:00)
[2017-11-07 08:00] VITALS: BP 145/67; PULSE 84; RESP 18; TEMP 98.5; O2SAT 95
[2017-11-07] MEDS ORDERED: MAGNESIUM HYDROXIDE SUSP 30 ML CUP PO ONE (08:30)
[2017-11-07] MEDS: DOCUSATE SODIUM 50 MG/SENNA 8.6 MG TAB PO SCH (09:00)
[2017-11-07] MEDS: MULTIVITAMIN TAB PO SCH (09:12)
[2017-11-07] MEDS: LISINOPRIL 10 MG TAB PO SCH (09:12)
[2017-11-07] MEDS: PANTOPRAZOLE SOD 40 MG DELAYED RELEASE TAB PO SCH (09:12)
[2017-11-07] MEDS: clonazePAM 0.5 MG TAB PO SCH (09:13)
[2017-11-07] MEDS: CETIRIZINE HCL 10 MG TAB PO SCH (09:13)
[2017-11-07] MEDS: POTASSIUM CHLORIDE 10 MEQ CAP PO SCH (09:13)
[2017-11-07] MEDS: CHOLECALCIFEROL (VIT D3) 1000 UNIT TAB PO SCH (09:14)
[2017-11-07] MEDS: SODIUM CHLORIDE 0.9% FLUSH 10 ML FLUSH IV FLUSH SCH (09:16)
[2017-11-07] MEDS: NAPHAZOLINE EACH EYE SCH (09:16)
[2017-11-07] MEDS: PHENIRAMINE EACH EYE SCH (09:16)
[2017-11-07] MEDS: OFLOXACIN 0.3% OPTH SOLN 5 ML BTL EACH EAR SCH (09:16)
[2017-11-07] MEDS ORDERED: CLON0.5T PO (13:14)
[2017-11-07] MEDS ORDERED: CLON.5 PO (13:14)
== END 2017-11-07 13:36 ==
LOC: NEPE 15:39 → NEDA 21:03 → NEDH 11-05 00:42 → NEPGCP 11-05 13:20
PROVIDERS: ADMIT Hospitalist; ATTEND Hospitalist
DX: H60.91 Unspecified otitis externa, right ear (principal); R53.1 Weakness; R51 Headache; R11.0 Nausea; F31.9 Bipolar disorder, unspecified; F41.9 Anxiety disorder, unspecified; K21.9 Gastro-esophageal reflux disease without esophagitis; I10 Essential (primary) hypertension; E03.9 Hypothyroidism, unspecified; R79.1 Abnormal coagulation profile; E87.1 Hypo-osmolality and hyponatremia; Z85.820 Personal history of malignant melanoma of skin
CPT/HCPCS: 70450; 71045; 71250; 72040; 74176; 80048; 80053; 81001; 82436; 82550; 82552; 83605; 83690; 83735; 83930; 83935; 84100; 84300; 84439; 84443; 84484; 85025; 85610; 85730; 87040; 93005; 96360; 96361; 97162; 99285; G0378; G8987; G8988; J7030